=== PATIENT | male | born 1945 | race Caucasian/White ===

== ENCOUNTER 2020-09-03 11:48 | Emergency (ER) | payer MEDICARE, OTHER, SELFPAY ==
[2020-09-03 12:06] VITALS: BP 144/82; PULSE 82; RESP 16; TEMP 37; O2SAT 98; BMI 28.7
--- NOTE | 2020-09-03 12:13 | ED.DIZZY ---
HPI - Dizziness General Chief Complaint: Dizziness Stated Complaint: DIZZNESS Time Seen by Provider: 09/03/20 12:13 Source: patient Mode of arrival: ambulatory Limitations: no limitations History of Present Illness HPI Narrative: patient with room spinning and feeling like he is going to pass out. Patient feels spinning right to left so is falling to the left. This is the third day of symptoms. Patient has had these symptoms prior. The symptoms are worse in the morning with sitting up. No recent change in medication MD elicited complaint: dizziness, lightheadedness and near syncope Onset (ago): day(s) Timing: sudden onset Severity: moderate Description: sense of movement, room spinning , lightheadedness, off-balance and near-syncope Related Data Previous Rx's Medication Instructions Recorded meclizine 25 mg PO TID #20 tab 09/03/20 Allergies Allergy/AdvReac Type Severity Reaction Status Date / Time No Known Allergies Allergy Unverified 07/11/20 19:16 [No Known Allergies*] Review of Systems Constitutional: Constitutional: Reports no additional constitutional complaints Eyes: Eyes: Reports no additional eye complaints ENT: Denies dizziness Cardiovascular: Cardiovascular: Reports no additional cardiovascular complaints Respiratory: Respiratory: Reports as per HPI Gastrointestinal: Gastrointestinal: Reports no additional gastrointestinal complaints Musculoskeletal: Musculoskeletal: Reports no additional musculoskeletal complaints Integumentary/Breasts: Skin/Breast: Denies rash Neurologic: Reports system reviewed and no additional complaints, except as documented, Denies dizziness and Denies Sensory deficit (Neuro) Psychiatric: Psychiatric: Denies anxiety PMFSH Past Medical History Medical History A-fib A-fib Heart attack Social History Social History Alcohol intake: current Alcohol intake frequency: 0-2 drinks per day Smoking Status: Former smoker Smoked in Last 30 Days: No Use of substances other than those prescribed or required for medical reasons: No Advance Directives: No Advance Directives Information Provided: Yes Physical Exam Vital Signs: Vital Signs: Last Vital Signs Temp 98.6 F 09/03/20 12:06 Pulse 82 09/03/20 12:06 Resp 18 09/03/20 16:27 BP 144/82 H 09/03/20 12:06 Pulse Ox 98 09/03/20 12:06 Body Mass Index 28.7 Const: General: healthy appearing Nutritional Appearance: average body habitus Orientation/consciousness: oriented to person and patient oriented x3 Limitations: no limitations HENMT: Head: Yes normal to inspection Ears: external ears normal General nose exam: Normal external nose present Mouth: Normal oral and palatal mucosa present and oropharynx normal Throat: Yes posterior oropharynx normal Eyes: General: appearance normal, both eyes and all related structures Neck: Other: supple Neck: Yes normal visual inspection Chest: Chest palpation & inspection: normal inspection of the chest Resp: Auscultation: clear to auscultation bilaterally Cardio: Jugular venous distension: no JVD Rate: regular rate Rhythm: regular rhythm Heart sounds: S1 normal heart sound present and S2 normal heart sound present GI: Inspection: Yes normal to inspection Palpation (GI): Soft to palpation, nontender and No hepatosplenomegaly present Auscultation: normal bowel sounds : General: Yes no CVA tenderness Back/Spine/Pelvis: Back: no CVA tenderness Skin: General skin exam: no rashes or lesions noted Neuro: General: oriented to person and patient oriented x3 Cranial nerves: Yes CN's II-XII intact bilaterally Motor exam (neuro): 5/5 motor strength present throughout Sensory Exam: No Sensory deficit (Neuro) Extrem: General: Yes normal to inspection Psych: Appearance: grossly normal Course Course Course Narrative: Patient with positive [place] on looking to left Reevaluation(s) Reevaluation #1: feeling better, no evidence of stroke with dc with vertigo diagnosis Time: 17:08 MDM - Dizziness Differential Diagnosis Differential diagnosis: Likely benign paroxysmal positional vertigo, vertebral basilar insufficiency, cerebrovascular accident and transient cerebral ischemia Lab Data Result diagrams: 09/03/20 12:53 09/03/20 12:53 Labs: Lab Results 09/03/20 09/03/20 09/03/20 Range/Units 12:53 12:53 12:53 WBC 6.0 (4.8-10.8) X10*3/uL RBC 5.09 (4.60-5.80) X10*6/uL Hgb 14.7 (14.0-18.0) g/dl Hct 44.1 (42-52) % MCV 86.6 (80-98) fL MCH 28.9 (27.0-33.0) pg MCHC 33.3 (31.0-36.0) g/dl RDW 14.9 (11.0-16.0) % Plt Count 218 (160-400) X10*3/uL MPV 10.9 (9.4-12.4) fL Immature Gran % (Auto) 0.2 (0.0-0.4) % Neut % (Auto) 85.1 H (45-73) % Lymph % (Auto) 4.5 L (20-40) % [place] % (Auto) 7.4 (2-11) % Eos % (Auto) 2.5 (0-4) % Baso % (Auto) 0.3 (0-2) % Lymph # (Auto) 0.3 L (1.2-4.9) X10*3/uL [place] # (Auto) 0.4 (0.1-1.2) X10*3/uL Eos # (Auto) 0.2 (0.0-0.4) X10*3/uL Baso # (Auto) 0.0 (0.0-0.2) X10*3/uL Abs Immat Gran (auto) 0.01 (0.00-0.03) X10*3/uL Absolute Neuts (auto) 5.1 (2.0-8.3) X10*3/uL Absolute Nucleated RBC 0.000 (0.0-0.012) X10*3/uL Nucleated RBC % (auto) 0.0 (0.0-0.2) /100WBC Smear Tech's Comments VERIFIED Sodium 142 (135-145) mmol/L Potassium 3.5 (3.3-5.1) mmol/l Chloride 104 (96-108) mmol/L Carbon Dioxide 31 H (22-29) mmol/L Anion Gap 11 L (12-20) BUN 23 H (9-16) mg/dL Creatinine 0.93 (0.5-1.4) mg/dL Estim Creat Clear Calc 72.0 Estimated GFR > 60 Random Glucose 120 H (60-115) mg/dL Calcium 9.0 (8.4-10.2) mg/dL Troponin I High Sens 4.2 (<3.5-35.0) ng/L ECG Data Attestation: I personally reviewed and interpreted this ECG as follows: Interpretation: atrial fibrillation, rate of 60, no st or twave changes Discharge Plan Discharge Clinical Impression: Benign paroxysmal positional vertigo Patient Disposition: Home, Self-Care Instructions: Benign Paroxysmal Positional Vertigo (ED) Prescriptions: New meclizine 25 mg tablet 25 mg PO TID Qty: 20 RF: 0 Referrals: Jennifer Barlow MD [Primary Care Provider] - 2 days
--- NOTE | 2020-09-03 12:29 | MR_ITS ---
EXAMINATION: MR BRAIN WITHOUT CONTRAST CLINICAL INFORMATION: Dizziness and falling to the left. COMPARISON: None available. TECHNIQUE: Multiplanar, multisequence imaging of the brain was performed without intravenous contrast. FINDINGS: There is no acute infarction, hemorrhage, mass, or extra-axial fluid collection. Mild scattered foci of T2 hyperintensity are seen in the bilateral cerebral white matter compatible with chronic microangiopathy. There is mild degree of diffuse brain parenchymal volume loss. No hydrocephalus is seen. The major arterial flow voids are preserved at the skull base. The orbital contents appear normal. There is a small amount of fluid in the bilateral mastoids. MR/MR head/brain wo con IMPRESSION: No acute intracranial abnormality identified. No mass or infarction. Mild nonspecific T2 hyperintensity in the cerebral white matter presumably reflecting chronic microangiopathy.
--- NOTE | 2020-09-03 12:29 | ECG_ITS ---
Test Reason : DIZZINESS Blood Pressure : / mmHG Vent. Rate : 057 BPM Atrial Rate : 357 BPM P-R Int : 000 ms QRS Dur : 074 ms QT Int : 406 ms P-R-T Axes : 000 -16 033 degrees QTc Int : 395 ms Atrial fibrillation with slow ventricular response Nonspecific ST and T wave abnormality Abnormal ECG When compared with ECG of 20-FEB-2017 12:26, Atrial fibrillation has replaced Sinus rhythm Heart rate has decreased 2 sec pause noted Referred By: John Curran Electronically Signed By:LAWRENCE SAPP MD
--- NOTE | 2020-09-03 12:51 | PC.NURSE ---
mri screening form completed and faxed to mri
[2020-09-03] MEDS: Meclizine HCl 25 MG TABLET 50 MG PO (12:53)
[2020-09-03 12:59] LABS: Basophils Percent Auto 0.3 % (0-2); Eosinophils Absolute Auto 0.2 X10*3/uL (0.0-0.4); Eosinophils Percent Auto 2.5 % (0-4); Hematocrit 44.1 % (42-52); Hemoglobin 14.7 g/dl (14.0-18.0); Imm Gran Abs Auto 0.01 X10*3/uL (0.00-0.03); Imm Gran Pct Auto 0.2 % (0.0-0.4); Lymphocytes Absolute Auto 0.3 X10*3/uL (1.2-4.9); Lymphocytes Percent Auto 4.5 % (20-40); Mean Corpuscular HGB Conc 33.3 g/dl (31.0-36.0); Mean Corpuscular Hemoglobin 28.9 pg (27.0-33.0); Mean Corpuscular Volume 86.6 fL (80-98); Mean Platelet Volume 10.9 fL (9.4-12.4); Monocytes Absolute Auto 0.4 X10*3/uL (0.1-1.2); Monocytes Percent Auto 7.4 % (2-11); Neutrophils Absolute Auto 5.1 X10*3/uL (2.0-8.3); Neutrophils Percent Auto 85.1 % (45-73); Platelet Count 218 X10*3/uL (160-400); Red Blood Count 5.09 X10*6/uL (4.60-5.80); Red Cell Distribution Width 14.9 % (11.0-16.0); SCAN SMEAR FLAG 1
[2020-09-03 13:25] LABS: Anion Gap 11 (12-20); Blood Urea Nitrogen 23 mg/dL (9-16); Carbon Dioxide 31 mmol/L (22-29); Chloride 104 mmol/L (96-108); Estimated Glomerular Filt Rate > 60; Glucose Random 120 mg/dL (60-115); Potassium 3.5 mmol/l (3.3-5.1); Sodium 142 mmol/L (135-145)
[2020-09-03 13:31] LABS: MANUAL DIFF FLAG SCAN
[2020-09-03 13:32] LABS: SLIDE REVIEW VERIFIED
[2020-09-03 13:33] LABS: Troponin-I High Sensitivity 4.2 ng/L (<3.5-35.0)
[2020-09-03 16:27] VITALS: RESP 18
--- NOTE | 2020-09-03 16:29 | PC.NURSE ---
pt expresses agitation about wait for bathroom and timing of mri results. patient reorientated to use of call john. patient verbalized understanding. patient refused to change back into nic. This is bullshit and i have to pee I havent seen anyone in hours. patient educated on 2 hr rounding by staff.
== END 2020-09-03 17:31 | disposition home or self-care (01) ==
PROVIDERS: Emergency Provider Emergency Medicine; PCP Family Medicine
DX: H81.13 Benign paroxysmal vertigo, bilateral (principal); Z79.899 Other long term (current) drug therapy
CPT/HCPCS: 36415; 70551; 80048; 84484; 85025; 93005; 99284; 99285

== ENCOUNTER 2021-11-12 21:24 | Observation (INO) | payer MEDICARE, OTHER, SELFPAY ==
--- NOTE | ~2021-11-12 | XR_ITS ---
EXAMINATION: PORTABLE CHEST 1 VIEW chest pain . COMPARISON: 02/20/2017. TECHNIQUE: Portable frontal view of the chest was obtained. FINDINGS: The lungs are well expanded. No focal infiltrate, effusion, edema, or pneumothorax. Cardiac and mediastinal silhouettes are within normal limits for technique. No acute bony abnormality seen. XR/XR chest 1V IMPRESSION: No evidence of acute disease.
[2021-11-12 21:34] VITALS: BP 114/65; PULSE 55; RESP 18; TEMP 36.7; O2SAT 98; BMI 25.1
--- NOTE | 2021-11-12 21:39 | ECG_ITS ---
Test Reason : CHEST PAIN Blood Pressure : / mmHG Vent. Rate : 060 BPM Atrial Rate : 000 BPM P-R Int : 000 ms QRS Dur : 070 ms QT Int : 406 ms P-R-T Axes : 000 -24 058 degrees QTc Int : 406 ms Atrial fibrillation with premature ventricular or aberrantly conducted complexes Low voltage QRS Abnormal ECG When compared with ECG of 03-SEP-2020 12:09, No significant change was found Referred By: Generic ED Physician Electronically Signed By:Audie Gutiérrez
[2021-11-12 22:04] LABS: MANUAL DIFF FLAG NO
--- NOTE | 2021-11-12 22:05 | ED.CHESTPAIN ---
HPI - Chest Pain General Chief Complaint: Chest Pain Stated Complaint: heart attack ? Time Seen by Provider: 11/12/21 22:05 Source: patient Mode of arrival: ambulatory Limitations: no limitations History of Present Illness HPI narrative: Patientwith history of coronary artery disease status post stent 5 years ago on Eliquis for atrial fibrillation was doing good for last 5 years occasionally gets chest pain today where an hour prior to arrival while resting notice similar chest pain in the left side , heavy in character radiating to his jaw lasted for about 20 minutes he took 2 nitros sublingually and improved no chest pain at this time no shortness of breath no diaphoresis no cough no palpitation no syncope episode Related Data Previous Rx's Medication Instructions Recorded meclizine 25 mg tablet 25 mg PO TID #20 tab 09/03/20 Allergies Allergy/AdvReac Type Severity Reaction Status Date / Time No Known Allergies Allergy Verified 11/12/21 21:34 [No Known Allergies*] Review of Systems Review of Systems: Yes all other systems are reviewed and are negative [facility] Past Medical History Medical History A-fib A-fib Heart attack Social History Social History Alcohol intake: current Alcohol intake frequency: 0-2 drinks per day Advance Directives: No Advance Directives Information Provided: Yes Physical Exam Vital Signs: Vital Signs: Last Vital Signs Temp 98.3 F 11/12/21 22:14 Pulse 57 11/13/21 00:48 Resp 16 11/13/21 00:48 BP 115/94 H 11/13/21 00:48 Pulse Ox 95 11/13/21 00:48 BMI result Body Mass Index 25.1 Appearance: Alert. Oriented X3. No acute distress. Eyes: No pallor icterus ENT: Pharynx normal. Oral Mucosa moist Neck: Normal inspection. Neck supple. CVS: Irregular irregular bradycardia no murmur or gallop Pulses normal. Respiratory: No respiratory distress. Equal air entry bilateral, no wheezing/rales/rhonchi Abdomen: Soft and nontender. Bowel sounds are present, no mass palpable, no CVA tenderness Skin: Skin warm and dry. Normal skin color. Normal skin turgor. Extremities: No lower extremity edema. No calf tenderness Neuro: Oriented X 3. No motor deficit. MDM - Chest Pain MDM Narrative Medical decision making narrative: Patient with left-sided chest pain similar to that when he had heart attack in 5 years ago EKG without any which changes initial troponin negative but patient is at high risk of coronary syndrome will admit patient for ACS/unstable angina ,no chest pain after arrival to the ER Lab Data Attestation: I reviewed the patient's lab results. Result diagrams: 11/12/21 21:57 11/12/21 21:57 Labs: Lab Results 11/12/21 11/12/21 11/12/21 Range/Units 21:57 21:57 21:57 WBC 5.6 (4.8-10.8) X10*3/uL RBC 4.48 L (4.60-5.80) X10*6/uL Hgb 13.4 L (14.0-18.0) g/dl Hct 40.2 L (42.0-52.0) % MCV 89.7 (80.0-98.0) fL MCH 29.9 (27.0-33.0) pg MCHC 33.3 (31.0-36.0) g/dl RDW 14.5 (11.0-16.0) % Plt Count 226 (160-400) X10*3/uL MPV 10.8 (9.4-12.4) fL Immature Gran % (Auto) 0.4 (0.0-0.4) % Neut % (Auto) 78.9 H (45-73) % Lymph % (Auto) 5.9 L (20-40) % [place] % (Auto) 10.1 (2-11) % Eos % (Auto) 4.3 H (0-4) % Baso % (Auto) 0.4 (0-2) % Lymph # (Auto) 0.3 L (1.2-4.9) X10*3/uL [place] # (Auto) 0.6 (0.1-1.2) X10*3/uL Eos # (Auto) 0.2 (0.0-0.4) X10*3/uL Baso # (Auto) 0.0 (0.0-0.2) X10*3/uL Abs Immat Gran (auto) 0.02 (0.00-0.03) X10*3/uL Absolute Neuts (auto) 4.4 (2.0-8.3) x10*3/uL Absolute Nucleated RBC 0.000 (0.0-0.012) X10*3/uL Nucleated RBC % (auto) 0.0 (0.0-0.2) /100WBC PT (9.9-13.0) SEC INR (0.9-1.1) APTT (24.1-38.0) SEC Sodium 142 (135-145) mmol/L Potassium 4.6 (3.3-5.1) mmol/L Chloride 107 (96-108) mmol/L Carbon Dioxide 29 (22-29) mmol/L Anion Gap 11 L (12-20) BUN 21 H (9-16) mg/dL Creatinine 0.98 (0.5-1.4) mg/dL Estim Creat Clear Calc 62.1 Estimated GFR > 60 Random Glucose 116 H (60-115) mg/dL Calcium 9.5 (8.4-10.2) mg/dL Troponin I High Sens 6.0 (<3.5-35.0) ng/L COVID-19 (XAVI) (Negative) COVID-19 Clin Com 11/12/21 11/13/21 Range/Units 22:23 00:11 WBC (4.8-10.8) X10*3/uL RBC (4.60-5.80) X10*6/uL Hgb (14.0-18.0) g/dl Hct (42.0-52.0) % MCV (80.0-98.0) fL MCH (27.0-33.0) pg MCHC (31.0-36.0) g/dl RDW (11.0-16.0) % Plt Count (160-400) X10*3/uL MPV (9.4-12.4) fL Immature Gran % (Auto) (0.0-0.4) % Neut % (Auto) (45-73) % Lymph % (Auto) (20-40) % [place] % (Auto) (2-11) % Eos % (Auto) (0-4) % Baso % (Auto) (0-2) % Lymph # (Auto) (1.2-4.9) X10*3/uL [place] # (Auto) (0.1-1.2) X10*3/uL Eos # (Auto) (0.0-0.4) X10*3/uL Baso # (Auto) (0.0-0.2) X10*3/uL Abs Immat Gran (auto) (0.00-0.03) X10*3/uL Absolute Neuts (auto) (2.0-8.3) x10*3/uL Absolute Nucleated RBC (0.0-0.012) X10*3/uL Nucleated RBC % (auto) (0.0-0.2) /100WBC PT 20.0 H (9.9-13.0) SEC INR 1.7 H (0.9-1.1) APTT 39.0 H (24.1-38.0) SEC Sodium (135-145) mmol/L Potassium (3.3-5.1) mmol/L Chloride (96-108) mmol/L Carbon Dioxide (22-29) mmol/L Anion Gap (12-20) BUN (9-16) mg/dL Creatinine (0.5-1.4) mg/dL Estim Creat Clear Calc Estimated GFR Random Glucose (60-115) mg/dL Calcium (8.4-10.2) mg/dL Troponin I High Sens (<3.5-35.0) ng/L COVID-19 (XAVI) Negative (Negative) COVID-19 Clin Com See Note ECG Data ECG #1: Attestation: I personally reviewed and interpreted this ECG as follows: Interpretation: Atrial fibrillation heart rate 60 beats per minute no acute ST T wave changes Discharge Plan Discharge Clinical Impression: Chest pain Qualifiers: Chest pain type: unspecified Qualified Code(s): R07.9 - Chest pain, unspecified Afib Qualifiers: Atrial fibrillation type: persistent (not longstanding) Qualified Code(s): I48.19 - Other persistent atrial fibrillation Patient Disposition: Admitted As Inpatient
[2021-11-12 22:08] LABS: Basophils Percent Auto 0.4 % (0-2); Eosinophils Absolute Auto 0.2 X10*3/uL (0.0-0.4); Eosinophils Percent Auto 4.3 % (0-4); Hematocrit 40.2 % (42.0-52.0); Hemoglobin 13.4 g/dl (14.0-18.0); Imm Gran Abs Auto 0.02 X10*3/uL (0.00-0.03); Imm Gran Pct Auto 0.4 % (0.0-0.4); Lymphocytes Absolute Auto 0.3 X10*3/uL (1.2-4.9); Lymphocytes Percent Auto 5.9 % (20-40); Mean Corpuscular HGB Conc 33.3 g/dl (31.0-36.0); Mean Corpuscular Hemoglobin 29.9 pg (27.0-33.0); Mean Corpuscular Volume 89.7 fL (80.0-98.0); Mean Platelet Volume 10.8 fL (9.4-12.4); Monocytes Absolute Auto 0.6 X10*3/uL (0.1-1.2); Monocytes Percent Auto 10.1 % (2-11); Neutrophils Absolute Auto 4.4 x10*3/uL (2.0-8.3); Neutrophils Percent Auto 78.9 % (45-73); Platelet Count 226 X10*3/uL (160-400); Red Blood Count 4.48 X10*6/uL (4.60-5.80); Red Cell Distribution Width 14.5 % (11.0-16.0); White Blood Count 5.6 X10*3/uL (4.8-10.8)
[2021-11-12 22:14] VITALS: BP 113/58; PULSE 62; RESP 16; TEMP 36.8; O2SAT 97
[2021-11-12 22:22] LABS: Anion Gap 11 (12-20); Blood Urea Nitrogen 21 mg/dL (9-16); Calcium 9.5 mg/dL (8.4-10.2); Carbon Dioxide 29 mmol/L (22-29); Chloride 107 mmol/L (96-108); Creatinine Clr Calc Pharmacy 62.1; Estimated Glomerular Filt Rate > 60; Glucose Random 116 mg/dL (60-115); Potassium 4.6 mmol/L (3.3-5.1); Sodium 142 mmol/L (135-145)
[2021-11-12 22:35] LABS: INTERNATIONAL NORM RATIO 1.7 (0.9-1.1)
[2021-11-12 23:48] VITALS: BP 117/70; PULSE 63; RESP 15; O2SAT 97
[2021-11-12] MEDS: Nitroglycerin 2 % Oint 1 GM Packet 0.5 INCH TRANSDERMA (23:49)
[2021-11-13 00:36] LABS: COVID-19 Test Negative (Negative); IDNOW Serial# 9DD0AD1C
[2021-11-13 00:48] VITALS: BP 115/94; PULSE 57; RESP 16; O2SAT 95
--- NOTE | 2021-11-13 01:07 | P.HPHOSP_ITS ---
History of Present Illness Date of Service: 11/13/21 Chief Complaint: chest pain 76-year-old male with a past medical history of hypertension, hyperlipidemia, CAD status post stent, AFib on Eliquis presented to the hospital with a chief complaint of chest pain. Patient reported that prior to come to the hospital he had episode of chest pain- tight in nature, located in the center of the chest, radiating to the [place], associated lightheadedness dizziness and nausea/indigestion; lasted for about 15-20 minute; no improvement with his home medications; subsequently his daughter brought him to the hospital for further evaluation. Denies any chest pain or lightheadedness at the time of my interview. Denies any fever chills cough. Denies any recent travel or sick contacts. Review of all other systems is negative except mentioned above ER course: Per ER team patient was chest pain-free; EKG showed AFib, nonischemic; patient was placed a nitro patch; initial troponin was 6.0. Given typical nature of the chest pain decided to admit to the hospital for further evaluation by Cardiology in the morning. REPLACED BY [facility] Medical History A-fib A-fib Heart attack Pertinent family history: Reviewed Social History Alcohol intake: current Alcohol intake frequency: 0-2 drinks per day Advance Directives: No Advance Directives Information Provided: Yes Meds Allergies Allergy/AdvReac Type Severity Reaction Status Date / Time No Known Allergies Allergy Verified 11/12/21 21:34 [No Known Allergies*] Physical Exam Verdana 4l Vital Signs and Narrative: Verdana 4d Verdana 4d Vital Signs: Verdana 4d Verdana 4Bd Last Vital Signs Verdana 4d Manager Of Financial Planning New 4d Manager Of Financial Planning New 4d Temp 98.3 F 11/12/21 22:14 Manager Of Financial Planning New 4d Pulse 57 11/13/21 00:48 Manager Of Financial Planning NewNew 4d Resp 16 11/13/21 00:48 BP 115/94 H 11/13/21 00:48 Pulse Ox 95 11/13/21 00:48 BMI result Body Mass Index 25.1 Gen: Appears be in no acute distress HEENT: NCAT, Moist mucosa. Pulmonary: Vesicular breath sounds, fair air entry CVS: Normal S1-S2 Abdomen: BS+, Soft, Nontender Extremities: Warm well perfused Neuro: Alert and awake. Results Labs CBC and Chem 7: 11/12/21 21:57 11/12/21 21:57 Labs: Laboratory Results - last 24 hr 11/12/21 11/12/21 11/12/21 21:57 21:57 21:57 MCV 89.7 MCH 29.9 MCHC 33.3 RDW 14.5 Plt Count 226 MPV 10.8 Immature Gran % (Auto) 0.4 Neut % (Auto) 78.9 H Lymph % (Auto) 5.9 L [place] % (Auto) 10.1 Eos % (Auto) 4.3 H Baso % (Auto) 0.4 Lymph # (Auto) 0.3 L [place] # (Auto) 0.6 Eos # (Auto) 0.2 Baso # (Auto) 0.0 Abs Immat Gran (auto) 0.02 Absolute Neuts (auto) 4.4 Absolute Nucleated RBC 0.000 Nucleated RBC % (auto) 0.0 PT INR APTT Anion Gap 11 L Estim Creat Clear Calc 62.1 Estimated GFR > 60 Random Glucose 116 H Calcium 9.5 Troponin I High Sens 6.0 COVID-19 (XAVI) COVID-19 Clin Com 11/12/21 11/13/21 22:23 00:11 MCV MCH MCHC RDW Plt Count MPV Immature Gran % (Auto) Neut % (Auto) Lymph % (Auto) [place] % (Auto) Eos % (Auto) Baso % (Auto) Lymph # (Auto) [place] # (Auto) Eos # (Auto) Baso # (Auto) Abs Immat Gran (auto) Absolute Neuts (auto) Absolute Nucleated RBC Nucleated RBC % (auto) PT 20.0 H INR 1.7 H APTT 39.0 H Anion Gap Estim Creat Clear Calc Estimated GFR Random Glucose Calcium Troponin I High Sens COVID-19 (XAVI) Negative COVID-19 Clin Com See Note Imaging Radiologist's Impressions: Impressions Chest X-Ray 11/12/21 22:03 IMPRESSION: No evidence of acute disease. Assessment and Plan (1) Chest pain: Status: Acute (2) CAD (coronary artery disease): Status: Acute (3) Afib: Status: Acute 76-year-old male with a past medical history of hypertension, hyperlipidemia, CAD status post stent, AFib on Eliquis presented to the hospital with a chief complaint of chest pain. Chest pain: typical in nature Currently resolved Patient has nitro patch placed in the ER Telemetry Initial troponin negative, cycle cardiac enzymes EKG nonischemic Cardiology consult history of AFib: Patient heart rate is in 50s- normal per patient. Continue home Eliquis. DVT prophylaxis: Patient on Eliquis Code status: Full code Quality Stroke Does the patient have a stroke diagnosis?: No VTE Prior VTE?: No VTE Risk Level:: Medical - low VTE Device Contraindication: Treatment Not Indicated VTE Drug Contraindication: N/A - Med Ordered
[2021-11-13 01:46] LABS: Troponin-I High Sensitivity 4.5 ng/L (<3.5-35.0)
[2021-11-13 02:05] VITALS: BP 110/61; PULSE 67; RESP 16; TEMP 36.4; O2SAT 96
[2021-11-13 06:33] LABS: Hemoglobin 12.4 g/dl (14.0-18.0); Mean Corpuscular HGB Conc 32.6 g/dl (31.0-36.0); Mean Corpuscular Hemoglobin 29.6 pg (27.0-33.0); Mean Corpuscular Volume 90.7 fL (80.0-98.0); Mean Platelet Volume 11.1 fL (9.4-12.4); Platelet Count 205 X10*3/uL (160-400); Red Blood Count 4.19 X10*6/uL (4.60-5.80); Red Cell Distribution Width 14.4 % (11.0-16.0)
[2021-11-13 06:46] VITALS: BP 84/48; PULSE 59; RESP 12; O2SAT 95
--- NOTE | 2021-11-13 06:50 | PC.NURSE ---
Dr Larson aware of pt's VS
[2021-11-13] MEDS: 0.9 % Sodium Chloride 500 ML IV (06:52)
[2021-11-13 07:01] LABS: Anion Gap 12 (12-20); Blood Urea Nitrogen 20 mg/dL (9-16); Calcium 8.8 mg/dL (8.4-10.2); Carbon Dioxide 26 mmol/L (22-29); Chloride 109 mmol/L (96-108); Creatinine Clr Calc Pharmacy 64.7; Estimated Glomerular Filt Rate > 60; Glucose Random 79 mg/dL (60-115); Sodium 143 mmol/L (135-145)
[2021-11-13 07:42] VITALS: BP 104/65; PULSE 59; RESP 15; TEMP 36.6; O2SAT 95
--- NOTE | 2021-11-13 08:37 | MHC.CM.PN ---
Met with patient in regards to discharge planning. Patient lives with his , ambulates independently and had no services prior to coming to the hospital. No services anticiapted to be needed because patient is not homebound. PCP verified. Copy of HCP verified to be on file. Obs notice explained and signed. Patient received 2 Moderna vaccines and a Pfizer booster. Patient's will transport patient home when medically stable. Continue to monitor for d/c needs.
--- NOTE | 2021-11-13 09:23 | PHA.MEDREC ---
Pharmacy Consult ? Medication Reconciliation Pharmacy has completed the medication reconciliation. Confirmed medications with pateint's Carol. Adelaide Robbins, [employer]
--- NOTE | 2021-11-13 09:51 | PM.CNCAR ---
History of Present Illness History of Present Illness Date of Service: 11/13/21 Requesting physician: Rio Long Chief complaint: Chest pain, unstable angina Narrative: Pleasant 76-year-old gentleman who is presenting for chest pain. He has no history of coronary artery disease underwent cardiac catheterization in 2018. His primary master tax advisor is Dr. Delta Jaramillo at [facility]. Cardiac catheterization showed 50% proximal LAD and mid LAD stenosis. He also had 65% proximal left circumflex stenosis which was studied with pressure wire and IFR was 0.92 which was nonsignificant. He also had mid RCA 45% stenosis. He was medically managed after that. He also has background of atrial fibrillation and has been on Eliquis. He is presenting with chest pain and jaw pain which happened at rest and lasted for approximately 15 minutes. He said this was similar to his anginal pain before. He also reports a PCI in the past. With these symptoms he presented to [facility]. He has stable hemodynamics. He has been pain-free since then. His high sensitivity troponin levels are 6 and 4.5. [facility] Past Medical History Medical History A-fib A-fib Heart attack Social History Social History Alcohol intake: current Alcohol intake frequency: 0-2 drinks per day Advance Directives: No Advance Directives Information Provided: Yes service: No Current occupational status: retired Meds Allergies Allergy/AdvReac Type Severity Reaction Status Date / Time No Known Allergies Allergy Verified 11/12/21 21:34 [No Known Allergies*] Active Medications: Current Medications Acetaminophen (Acetaminophen 325 Mg Tablet) 650 mg PO Q6H PRN PRN Reason: Pain, Mild (Pain Scale 1-3) Apixaban (Apixaban 5 Mg Tablet) 5 mg PO BID JESSICA Melatonin (Melatonin 3 Mg Tablet) 6 mg PO BEDTIME PRN PRN Reason: Insomnia Nitroglycerin (Nitroglycerin 0.4 Mg Tab.Subl) 0.4 mg SUBLINGUAL Q5MX3 PRN PRN Reason: Chest Pain Pharmacy Consult (Consult Rx Perform Med Rec) 1 each MISCELLANE ONCE PRN PRN Reason: Consult order Senna (Sennosides 8.6 Mg Tablet) 17.2 mg PO BEDTIME PRN PRN Reason: Constipation Sodium Chloride (0.9 % Sodium Chloride Flush 3 Ml Syringe) 3 ml IVFLUSH QSHIFT JESSICA Last Admin: 11/13/21 07:54 Dose: Not Given Documented by: Home Medications Medication Instructions Recorded Confirmed Last Taken Type apixaban 5 mg tablet (Eliquis) 1 tab PO BID 11/13/21 11/13/21 11/12/21 History atorvastatin 80 mg tablet 1 tab PO BEDTIME 11/13/21 11/13/21 11/12/21 History cyanocobalamin (vitamin B-12) 1,000 mcg PO DAILY 11/13/21 11/13/21 11/12/21 History 1,000 mcg tablet doxazosin 8 mg tablet 1 tab PO DAILY 11/13/21 11/13/21 11/12/21 History famotidine 20 mg tablet 1 tab PO BID 11/13/21 11/13/21 11/12/21 History nitroglycerin 0.4 mg sublingual 0.4 mg SUBLINGUAL Q2M PRN 11/13/21 11/13/21 11/12/21 History tablet pyridoxine (vitamin B6) 100 mg 100 mg PO DAILY 11/13/21 11/13/21 11/12/21 History tablet thiamine HCl (vitamin B1) 100 mg 50 mg PO DAILY 11/13/21 11/13/21 11/12/21 History tablet Physical Exam Vital Signs: Vital Signs: Last Vital Signs Temp 97.9 F 11/13/21 07:42 Pulse 59 11/13/21 07:42 Resp 15 11/13/21 07:42 BP 104/65 11/13/21 07:42 Pulse Ox 95 11/13/21 07:42 BMI result Body Mass Index 25.1 GENERAL APPEARANCE: in no acute distress, pleasant. NECK: no carotid bruit, no jugular venous distention. SKIN: no suspicious lesions, warm and dry. HEART: no murmurs, regular rate and rhythm. LUNGS: clear to auscultation bilaterally. ABDOMEN: soft, nontender. EXTREMITIES: no edema. PERIPHERAL PULSES: equal. NEUROLOGIC: No gross deficits, AAO X 3 Objective Labs and Meds Result diagrams: 11/13/21 06:12 11/13/21 06:12 Lab results: Laboratory Results - last 24 hr 11/12/21 11/12/21 11/12/21 21:57 21:57 21:57 WBC 5.6 RBC 4.48 L Hgb 13.4 L Hct 40.2 L MCV 89.7 MCH 29.9 MCHC 33.3 RDW 14.5 Plt Count 226 MPV 10.8 Immature Gran % (Auto) 0.4 Neut % (Auto) 78.9 H Lymph % (Auto) 5.9 L [place] % (Auto) 10.1 Eos % (Auto) 4.3 H Baso % (Auto) 0.4 Lymph # (Auto) 0.3 L [place] # (Auto) 0.6 Eos # (Auto) 0.2 Baso # (Auto) 0.0 Abs Immat Gran (auto) 0.02 Absolute Neuts (auto) 4.4 Absolute Nucleated RBC 0.000 Nucleated RBC % (auto) 0.0 PT INR APTT Sodium 142 Potassium 4.6 Chloride 107 Carbon Dioxide 29 Anion Gap 11 L BUN 21 H Creatinine 0.98 Estim Creat Clear Calc 62.1 Estimated GFR > 60 Random Glucose 116 H Calcium 9.5 Troponin I High Sens 6.0 COVID-19 (XAVI) [facility] 11/12/21 11/13/21 11/13/21 22:23 00:11 01:23 WBC RBC Hgb Hct MCV MCH MCHC RDW Plt Count MPV Immature Gran % (Auto) Neut % (Auto) Lymph % (Auto) [place] % (Auto) Eos % (Auto) Baso % (Auto) Lymph # (Auto) [place] # (Auto) Eos # (Auto) Baso # (Auto) Abs Immat Gran (auto) Absolute Neuts (auto) Absolute Nucleated RBC Nucleated RBC % (auto) PT 20.0 H INR 1.7 H APTT 39.0 H Sodium Potassium Chloride Carbon Dioxide Anion Gap BUN Creatinine Estim Creat Clear Calc Estimated GFR Random Glucose Calcium Troponin I High Sens 4.5 COVID-19 (XAVI) Negative COVID-19 [employer] See Note 11/13/21 11/13/21 06:12 06:12 WBC 5.0 RBC 4.19 L Hgb 12.4 L Hct 38.0 L MCV 90.7 MCH 29.6 MCHC 32.6 RDW 14.4 Plt Count 205 MPV 11.1 Immature Gran % (Auto) Neut % (Auto) Lymph % (Auto) [place] % (Auto) Eos % (Auto) Baso % (Auto) Lymph # (Auto) [place] # (Auto) Eos # (Auto) Baso # (Auto) Abs Immat Gran (auto) Absolute Neuts (auto) Absolute Nucleated RBC 0.000 Nucleated RBC % (auto) 0.0 PT INR APTT Sodium 143 Potassium 4.0 Chloride 109 H Carbon Dioxide 26 Anion Gap 12 BUN 20 H Creatinine 0.94 Estim Creat Clear Calc 64.7 Estimated GFR > 60 Random Glucose 79 Calcium 8.8 D Troponin I High Sens COVID-19 (XAVI) COVID-19 Clin Com Imaging Radiologist's impression: Impressions Chest X-Ray 11/12/21 22:03 IMPRESSION: No evidence of acute disease. Assessment and Plan (1) Afib: Qualifiers: Atrial fibrillation type: persistent (not longstanding) Qualified Code(s): I48.19 - Other persistent atrial fibrillation Status: Acute (2) Chest pain: Qualifiers: Chest pain type: unspecified Qualified Code(s): R07.9 - Chest pain, unspecified Status: Acute Pleasant 76-year-old gentleman who is presenting for chest pain. He has atrial fibrillation and has been on Eliquis. He also has history of coronary disease with cardiac catheterization in 2018 when he had 65% left circumflex stenosis which was IFR negative. Currently his EKG is not showing any dynamic changes. His biomarkers also normal but he had chest pain at rest a 15 minutes duration radiating to his jaw which is his anginal pain which has not happened for long time. I think we should treat him as unstable angina. Hold the Eliquis and start him on heparin drip. I have discussed the case with [facility] and will transfer to [facility] for potential cardiac catheterization tomorrow. Please keep him NPO after midnight. Continue aspirin. Hold the Eliquis. Thank you for allowing me to participate in the care of your patient. Please feel free to contact me if you have any questions. Procedures Date of Service Date of Service: 11/13/21
[2021-11-13] MEDS: Aspirin 81 MG TAB.CHEW 324 MG PO (10:19)
--- NOTE | 2021-11-13 10:27 | PC.NURSE ---
contact made to Hospitalist Ethan: confirmed per [facility] cardiology, pt is to be transferred to [facility] pending Cath. Plan is to administer ASA at this time, hold elquis, then start HEPARIN GTTs in evening.
[2021-11-13 10:48] VITALS: BP 123/56; PULSE 63; RESP 17; TEMP 36.4; O2SAT 98
--- NOTE | 2021-11-13 11:07 | PC.NURSE ---
ACCEPTING MD: Mirta pt to be transferred to [facility].
--- NOTE | 2021-11-13 11:09 | PC.NURSE ---
Called to give report Evi ZAMORA unable to take it, will call back in 10min
--- NOTE | 2021-11-13 11:22 | PM.DS ---
DS: Providers Provider Date of Service: 11/13/21 Date of admission: 11/13/21 01:05 Primary care physician: Jennifer Barlow MD Consults: 11/13/21 01:05 Consult to Cardiology Routine Consulting Provider: Audie Gutiérrez Reason for consultation: chest pain DS: Diagnosis Discharge Diagnosis (1) Chest pain: Status: Acute (2) CAD (coronary artery disease): Status: Acute (3) Afib: Status: Acute DS: Summary Hospital Course Hospital Course: patient was admitted for unstable angina. His Eliquis has been held, he was given aspirin, he was seen by Cardiology who recommended transfer to [facility] for further evaluation and possible catheterization. Patient's chest pain has resolved. His troponins remain negative. Time Spent with Patient Time attestation: Total time spent providing and/or coordinating discharge services: Discharge coordination time: Greater than 30 minutes Quality: Stroke Does the patient have a stroke diagnosis?: No Physical Exam Vital Signs: Vital Signs: Last Vital Signs Temp 97.6 F 11/13/21 10:48 Pulse 63 11/13/21 10:48 Resp 17 11/13/21 10:48 BP 123/56 L 11/13/21 10:48 Pulse Ox 98 11/13/21 10:48 BMI result Body Mass Index 25.1 General: AO X 3, no acute distress Resp: CTA bilateral, no accessory muscles used CVS: S1,S2,RRR GI: soft, non tender, non distended Neuro: motor grossly intact, alert Psych: appropriate affect, appropriate insight DS: Data Data Completed and Pending Labs on day of discharge: Laboratory Results - last 24 hr 11/12/21 11/12/21 11/12/21 21:57 21:57 21:57 WBC 5.6 RBC 4.48 L Hgb 13.4 L Hct 40.2 L MCV 89.7 MCH 29.9 MCHC 33.3 RDW 14.5 Plt Count 226 MPV 10.8 Immature Gran % (Auto) 0.4 Neut % (Auto) 78.9 H Lymph % (Auto) 5.9 L [place] % (Auto) 10.1 Eos % (Auto) 4.3 H Baso % (Auto) 0.4 Lymph # (Auto) 0.3 L [place] # (Auto) 0.6 Eos # (Auto) 0.2 Baso # (Auto) 0.0 Abs Immat Gran (auto) 0.02 Absolute Neuts (auto) 4.4 Absolute Nucleated RBC 0.000 Nucleated RBC % (auto) 0.0 PT INR APTT Sodium 142 Potassium 4.6 Chloride 107 Carbon Dioxide 29 Anion Gap 11 L BUN 21 H Creatinine 0.98 Estim Creat Clear Calc 62.1 Estimated GFR > 60 Random Glucose 116 H Calcium 9.5 Troponin I High Sens 6.0 COVID-19 (XAVI) COVID-19 Clin Com 11/12/21 11/13/21 11/13/21 22:23 00:11 01:23 WBC RBC Hgb Hct MCV MCH MCHC RDW Plt Count MPV Immature Gran % (Auto) Neut % (Auto) Lymph % (Auto) [place] % (Auto) Eos % (Auto) Baso % (Auto) Lymph # (Auto) [place] # (Auto) Eos # (Auto) Baso # (Auto) Abs Immat Gran (auto) Absolute Neuts (auto) Absolute Nucleated RBC Nucleated RBC % (auto) PT 20.0 H INR 1.7 H APTT 39.0 H Sodium Potassium Chloride Carbon Dioxide Anion Gap BUN Creatinine Estim Creat Clear Calc Estimated GFR Random Glucose Calcium Troponin I High Sens 4.5 COVID-19 (XAVI) Negative COVID-19 Clin Com See Note 11/13/21 11/13/21 06:12 06:12 WBC 5.0 RBC 4.19 L Hgb 12.4 L Hct 38.0 L MCV 90.7 MCH 29.6 MCHC 32.6 RDW 14.4 Plt Count 205 MPV 11.1 Immature Gran % (Auto) Neut % (Auto) Lymph % (Auto) [place] % (Auto) Eos % (Auto) Baso % (Auto) Lymph # (Auto) [place] # (Auto) Eos # (Auto) Baso # (Auto) Abs Immat Gran (auto) Absolute Neuts (auto) Absolute Nucleated RBC 0.000 Nucleated RBC % (auto) 0.0 PT INR APTT Sodium 143 Potassium 4.0 Chloride 109 H Carbon Dioxide 26 Anion Gap 12 BUN 20 H Creatinine 0.94 Estim Creat Clear Calc 64.7 Estimated GFR > 60 Random Glucose 79 Calcium 8.8 D Troponin I High Sens COVID-19 (XAVI) COVID-19 Clin Com Discharge Plan Discharge Patient Disposition: [facility] Discharge Diagnosis: unstable angina Referrals: Jennifer Barlow MD [Primary Care Provider] - 1 Week Discharge Medications: Continued atorvastatin 80 mg tablet 1 tab PO BEDTIME RF: 0 cyanocobalamin (vitamin B-12) 1,000 mcg Tablet 1,000 mcg PO DAILY RF: 0 thiamine HCl (vitamin B1) 100 mg Tablet 50 mg PO DAILY RF: 0 doxazosin 8 mg tablet 1 tab PO DAILY RF: 0 famotidine 20 mg tablet 1 tab PO BID RF: 0 nitroglycerin 0.4 mg tablet, sublingual 0.4 mg sublingual Q2M PRN (Reason: Chest Pain) RF: 0 pyridoxine (vitamin B6) 100 mg Tablet 100 mg PO DAILY RF: 0 Held Eliquis 5 mg tablet 1 tab PO BID RF: 0 Hold Instructions: Resume on 11/17/21. Discharge Orders: Discharge Order (Routine); Ordered 11/13/21 Ordered By: Rio Long Diet: advance to usual diet Activity on Discharge: As tolerated Stand Alone Forms: Patient Portal Discharge page Care Plan Goals: ischemic workup Health Concerns: unstable angina Plan of Treatment: transfer to [facility] for possible catheterization, holding Eliquis Assessment: see above
--- NOTE | 2021-11-13 11:22 | MHC.CM.PN ---
PER MD ROUNDS, PT TO BE TRANSFERRED TO [facility]
== END 2021-11-13 16:39 | disposition short-term general hospital (02) ==
LOC: HO.ED 22:28 → HO.EDOVER 11-13 01:14
PROVIDERS: Admitting Provider Hospitalist; Emergency Provider Internal Medicine; PCP Family Medicine; Visit Provider Internal Medicine
DX: I48.19 Other persistent atrial fibrillation (principal); R07.9 Chest pain, unspecified; R68.84 Jaw pain; I25.110 Atherosclerotic heart disease of native coronary artery with unstable angina pectoris; I10 Essential (primary) hypertension; E78.5 Hyperlipidemia, unspecified; Z20.822 Contact with and (suspected) exposure to COVID-19; Z98.890 Other specified postprocedural states; Z95.5 Presence of coronary angioplasty implant and graft; Z86.74 Personal history of sudden cardiac arrest; Z79.01 Long term (current) use of anticoagulants; Z79.899 Other long term (current) drug therapy
CPT/HCPCS: 36415; 71045; 80048; 84484; 85025; 85027; 85610; 85730; 87635; 93005; 96361; 96365; 96366; 96375; 99219; 99285

== ENCOUNTER 2022-04-17 16:00 | Emergency (ER) | payer MEDICARE, OTHER, SELFPAY ==
--- NOTE | ~2022-04-17 | XR_ITS ---
EXAMINATION: XR CHEST CLINICAL INFORMATION: Chest pain. COMPARISON: 11/12/2021 chest radiograph. TECHNIQUE: 2 views of the chest were obtained. FINDINGS: No significant abnormality is noted involving the heart, lungs, mediastinum, bony thorax or soft tissues. Leadless device overlies the cardiac silhouette. XR/XR chest 2V IMPRESSION: No acute cardiopulmonary process.
[2022-04-17 16:07] VITALS: BP 98/57; PULSE 94; RESP 19; TEMP 36.6; O2SAT 96; BMI 25.9
--- NOTE | 2022-04-17 16:12 | ECG_ITS ---
Test Reason : WEAKNESS Blood Pressure : / mmHG Vent. Rate : 069 BPM Atrial Rate : 000 BPM P-R Int : 000 ms QRS Dur : 070 ms QT Int : 356 ms P-R-T Axes : 000 -31 082 degrees QTc Int : 381 ms Atrial fibrillation with occasional ventricular-paced complexes Left axis deviation Abnormal ECG When compared with ECG of 12-NOV-2021 21:45, ventricular-paced complexes are now Present Referred By: Generic ED Physician Electronically Signed By:MARY ALICE MARRERO MD
[2022-04-17 16:31] LABS: MANUAL DIFF FLAG NO
[2022-04-17 16:33] LABS: Basophils Percent Auto 0.2 % (0-2); Hematocrit 40.4 % (42.0-52.0); Hemoglobin 13.5 g/dl (14.0-18.0); Imm Gran Abs Auto 0.02 X10*3/uL (0.00-0.03); Imm Gran Pct Auto 0.3 % (0.0-0.4); Lymphocytes Absolute Auto 0.3 X10*3/uL (1.2-4.9); Lymphocytes Percent Auto 4.4 % (20-40); Mean Corpuscular HGB Conc 33.4 g/dl (31.0-36.0); Mean Corpuscular Hemoglobin 29.2 pg (27.0-33.0); Mean Corpuscular Volume 87.3 fL (80.0-98.0); Mean Platelet Volume 10.4 fL (9.4-12.4); Monocytes Absolute Auto 0.7 X10*3/uL (0.1-1.2); Monocytes Percent Auto 10.5 % (2-11); Neutrophils Absolute Auto 5.5 x10*3/uL (2.0-8.3); Neutrophils Percent Auto 84.6 % (45-73); Platelet Count 191 X10*3/uL (160-400); Red Blood Count 4.63 X10*6/uL (4.60-5.80); Red Cell Distribution Width 15.3 % (11.0-16.0); White Blood Count 6.6 X10*3/uL (4.8-10.8)
[2022-04-17 16:43] LABS: Prothrombin Time 22.6 SEC (9.9-13.0)
[2022-04-17 16:47] LABS: Anion Gap 13 (12-20); Blood Urea Nitrogen 19 mg/dL (9-16); Calcium 8.6 mg/dL (8.4-10.2); Carbon Dioxide 24 mmol/L (22-29); Chloride 104 mmol/L (96-108); Creatinine Clr Calc Pharmacy 47.8; Estimated Glomerular Filt Rate 59; Glucose Random 115 mg/dL (60-115); Potassium 4.1 mmol/L (3.3-5.1); Sodium 137 mmol/L (135-145)
[2022-04-17 16:52] LABS: Troponin-I High Sensitivity 8.3 ng/L (<3.5-35.0)
--- NOTE | 2022-04-17 17:26 | ED_ITS ---
HPI - General Adult General Chief complaint: General Medical Stated complaint: dizziness/weakness/COVID+ Time Seen by Provider: 04/17/22 17:08 History of Present Illness HPI narrative: Patient is 76-year-old male with a history of testing positive for coronavirus 3 days prior. Positive coughing upper respiratory symptoms positive generalized malaise getting infusion therapy. Not on plaques Lopid status post 2 shots of Pfizer 2 shots of Moderna. Patient from home. After getting his monoclonal antibody infusion patient has chest pain on the left side lasting for few minutes. Denies any diaphoresis positive generalized malaise weakness. Patient has a history of coronary artery disease history of hi cholesterol. Pain is different than previous [place]. Patient from home. Has a history of atrial fibrillation is already on Eliquis. Related Data Home Medications Medication Instructions Recorded Confirmed apixaban 5 mg tablet (Eliquis) 1 tab PO BID 11/13/21 11/13/21 atorvastatin 80 mg tablet 1 tab PO BEDTIME 11/13/21 11/13/21 cyanocobalamin (vitamin B-12) 1,000 mcg PO DAILY 11/13/21 11/13/21 1,000 mcg tablet doxazosin 8 mg tablet 1 tab PO DAILY 11/13/21 11/13/21 famotidine 20 mg tablet 1 tab PO BID 11/13/21 11/13/21 nitroglycerin 0.4 mg sublingual 0.4 mg sublingual Q2M PRN Chest 11/13/21 11/13/21 tablet Pain pyridoxine (vitamin B6) 100 mg 100 mg PO DAILY 11/13/21 11/13/21 tablet thiamine HCl (vitamin B1) 100 mg 50 mg PO DAILY 11/13/21 11/13/21 tablet Allergies Allergy/AdvReac Type Severity Reaction Status Date / Time No Known Allergies Allergy Verified 11/12/21 21:34 [No Known Allergies*] Review of Systems Review of Systems: No fever no chills no diaphoresis Positive coughing upper respiratory symptoms Yes all other systems are reviewed and are negative [facility] Past Medical History Attestation statement: The following information was validated with the patient. Medical History A-fib A-fib Heart attack Social History Social History Alcohol intake: current Alcohol intake frequency: 0-2 drinks per day Alcohol type: hard liquor Patient Tobacco Use Status: Former Tobacco user Use of substances other than those prescribed or required for medical reasons: No Advance Directives: No Advance Directives Information Provided: No service: No Current occupational status: retired Physical Exam ED Vital Signs: Vital Signs - 24 hr 04/17/22 16:07 04/17/22 17:30 Temperature 98 F 98.8 F Pulse Rate 94 99 Respiratory Rate 19 18 Blood Pressure 98/57 L 126/62 Pulse Oximetry 96 96 Oxygen Delivery Method Room Air Room Air BMI result Body Mass Index 25.9 Appearance: Alert. Oriented X3. No acute distress. Eyes: Pupils equal, round and reactive to light. ENT: Pharynx normal. Neck: Normal inspection. Neck supple. No lymph nodes noted. No crepitus CVS: Normal heart rate and rhythm. Pulses normal. Normal S1 and S2 Respiratory: No respiratory distress. Breath sounds normal. No Wheezing. No rales Abdomen: Soft and nontender. No rigidity. No distention. good BS x4 Skin: Skin warm and dry. Normal skin color. Normal skin turgor. Extremities: No lower extremity edema. Neurovascular intact to all extremities. No Lacerations. No Rash Neuro: Oriented X 3. No motor deficit. No sensory deficit. Moving all extermities. No slurred speech Medical Decision Making MDM Narrative Medical decision making narrative: Patient's EKG showed an atrial fibrillation pattern heart rate was 70 QRS QT within normal limits there is no acute ST segment elevation noted. Compared to an old EKG only PVC is different. Otherwise the same. Versus troponin was negative. Will get a 2nd set just to be sure. A chest x-ray is ordered. Adali ent is unlikely to have a pulmonary emboli given he is already on Eliquis. Currently in stable condition. O2 sats 96% on room air in no distress. Speaking complete sentences Two sets of cardiac enzymes unchanged. Patient is to be discharged home. O2 sat is normal no evidence hypoxia in stable condition. Lab Data Result diagrams: 04/17/22 16:25 04/17/22 16:25 Labs: Lab Results 04/17/22 04/17/22 04/17/22 Range/Units 16:25 16:25 16:25 WBC 6.6 (4.8-10.8) X10*3/uL RBC 4.63 (4.60-5.80) X10*6/uL Hgb 13.5 L (14.0-18.0) g/dl Hct 40.4 L (42.0-52.0) % MCV 87.3 (80.0-98.0) fL MCH 29.2 (27.0-33.0) pg MCHC 33.4 (31.0-36.0) g/dl RDW 15.3 (11.0-16.0) % Plt Count 191 (160-400) X10*3/uL MPV 10.4 (9.4-12.4) fL Immature Gran % (Auto) 0.3 (0.0-0.4) % Neut % (Auto) 84.6 H (45-73) % Lymph % (Auto) 4.4 L (20-40) % [place] % (Auto) 10.5 (2-11) % Eos % (Auto) 0.0 (0-4) % Baso % (Auto) 0.2 (0-2) % Lymph # (Auto) 0.3 L (1.2-4.9) X10*3/uL [place] # (Auto) 0.7 (0.1-1.2) X10*3/uL Eos # (Auto) 0.0 (0.0-0.4) X10*3/uL Baso # (Auto) 0.0 (0.0-0.2) X10*3/uL Abs Immat Gran (auto) 0.02 (0.00-0.03) X10*3/uL Absolute Neuts (auto) 5.5 (2.0-8.3) x10*3/uL Absolute Nucleated RBC 0.000 (0.0-0.012) X10*3/uL Nucleated RBC % (auto) 0.0 (0.0-0.2) /100WBC PT (9.9-13.0) SEC INR (0.9-1.1) Sodium 137 (135-145) mmol/L Potassium 4.1 (3.3-5.1) mmol/L Chloride 104 (96-108) mmol/L Carbon Dioxide 24 (22-29) mmol/L Anion Gap 13 (12-20) BUN 19 H (9-16) mg/dL Creatinine 1.19 (0.5-1.4) mg/dL Estim Creat Clear Calc 47.8 Estimated GFR 59 Random Glucose 115 D (60-115) mg/dL Calcium 8.6 (8.4-10.2) mg/dL Troponin I High Sens 8.3 D (<3.5-35.0) ng/L 04/17/22 04/17/22 Range/Units 16:25 17:57 WBC (4.8-10.8) X10*3/uL RBC (4.60-5.80) X10*6/uL Hgb (14.0-18.0) g/dl Hct (42.0-52.0) % MCV (80.0-98.0) fL MCH (27.0-33.0) pg MCHC (31.0-36.0) g/dl RDW (11.0-16.0) % Plt Count (160-400) X10*3/uL MPV (9.4-12.4) fL Immature Gran % (Auto) (0.0-0.4) % Neut % (Auto) (45-73) % Lymph % (Auto) (20-40) % [place] % (Auto) (2-11) % Eos % (Auto) (0-4) % Baso % (Auto) (0-2) % Lymph # (Auto) (1.2-4.9) X10*3/uL [place] # (Auto) (0.1-1.2) X10*3/uL Eos # (Auto) (0.0-0.4) X10*3/uL Baso # (Auto) (0.0-0.2) X10*3/uL Abs Immat Gran (auto) (0.00-0.03) X10*3/uL Absolute Neuts (auto) (2.0-8.3) x10*3/uL Absolute Nucleated RBC (0.0-0.012) X10*3/uL Nucleated RBC % (auto) (0.0-0.2) /100WBC PT 22.6 H (9.9-13.0) SEC INR 2.0 H (0.9-1.1) Sodium (135-145) mmol/L Potassium (3.3-5.1) mmol/L Chloride (96-108) mmol/L Carbon Dioxide (22-29) mmol/L Anion Gap (12-20) BUN (9-16) mg/dL Creatinine (0.5-1.4) mg/dL Estim Creat Clear Calc Estimated GFR Random Glucose (60-115) mg/dL Calcium (8.4-10.2) mg/dL Troponin I High Sens 7.9 (<3.5-35.0) ng/L Discharge Plan Discharge Clinical Impression: COVID-19 Patient Disposition: Home, Self-Care Instructions: COVID-19 (Coronavirus Disease 2019) (ED) Prescriptions: No Action atorvastatin 80 mg tablet 1 tab PO BEDTIME cyanocobalamin (vitamin B-12) 1,000 mcg Tablet 1,000 mcg PO DAILY thiamine HCl (vitamin B1) 100 mg Tablet 50 mg PO DAILY doxazosin 8 mg tablet 1 tab PO DAILY famotidine 20 mg tablet 1 tab PO BID nitroglycerin 0.4 mg tablet, sublingual 0.4 mg sublingual Q2M PRN (Reason: Chest Pain) pyridoxine (vitamin B6) 100 mg Tablet 100 mg PO DAILY Eliquis 5 mg tablet 1 tab PO BID Hold Instructions: Resume on 11/17/21. Referrals: Jennifer Barlow MD [Primary Care Provider] -
[2022-04-17 17:30] VITALS: BP 126/62; PULSE 99; RESP 18; TEMP 37.1; O2SAT 96
[2022-04-17 18:20] LABS: Troponin-I High Sensitivity 7.9 ng/L (<3.5-35.0)
== END 2022-04-17 19:14 | disposition home or self-care (01) ==
PROVIDERS: Emergency Provider Emergency Medicine Emergency Medical Services; PCP Family Medicine
DX: U07.1 COVID-19 (principal); R42 Dizziness and giddiness; R05.9 Cough, unspecified; Z79.899 Other long term (current) drug therapy; Z87.891 Personal history of nicotine dependence
CPT/HCPCS: 36415; 71046; 80048; 84484; 85025; 85610; 93005; 99283; 99284

== ENCOUNTER 2023-09-02 14:19 | Emergency (ER) | payer MEDICARE, OTHER, SELFPAY ==
--- NOTE | ~2023-09-02 | XR_ITS ---
X-RAY LUMBAR SPINE X-RAY SACROILIAC JOINTS CLINICAL HISTORY: Pain. COMPARISON: No relevant prior studies are available for comparison. TECHNIQUE: 3 views of the lumbar spine. 2 views of the sacroiliac joints. FINDINGS: Lumbar spine: No evidence of acute compression deformity or traumatic subluxation. Trace stepwise retrolisthesis from L2 through S1. Severe intervertebral disc height loss at L5-S1. Severe facet arthropathy from L4 through S1 leading to central canal stenosis and neural foraminal encroachment. Multilevel anterior osteophytes. Biiliac vascular stents. Scattered vascular calcifications. No significant paraspinal soft tissue abnormality. Sacroiliac joints: Symmetric SI joints. No erosive changes. No discrete displaced fractures or subluxation. Pubic symphysis is maintained. 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 Scattered vascular calcifications. XR/XR sacroiliac joint 1-2V IMPRESSION: 1. No acute compression deformity or malalignment. 2. Severe lower lumbar spondylosis, most marked at L5-S1. 3. Symmetric SI joints. No evidence of acute fractures or malalignment. 4. 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
--- NOTE | ~2023-09-02 | XR_ITS ---
X-RAY LUMBAR SPINE X-RAY SACROILIAC JOINTS CLINICAL HISTORY: Pain. COMPARISON: No relevant prior studies are available for comparison. TECHNIQUE: 3 views of the lumbar spine. 2 views of the sacroiliac joints. FINDINGS: Lumbar spine: No evidence of acute compression deformity or traumatic subluxation. Trace stepwise retrolisthesis from L2 through S1. Severe intervertebral disc height loss at L5-S1. Severe facet arthropathy from L4 through S1 leading to central canal stenosis and neural foraminal encroachment. Multilevel anterior osteophytes. Biiliac vascular stents. Scattered vascular calcifications. No significant paraspinal soft tissue abnormality. Sacroiliac joints: Symmetric SI joints. No erosive changes. No discrete displaced fractures or subluxation. Pubic symphysis is maintained. 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 Scattered vascular calcifications. XR/XR lumbar spine 2-3V IMPRESSION: 1. No acute compression deformity or malalignment. 2. Severe lower lumbar spondylosis, most marked at L5-S1. 3. Symmetric SI joints. No evidence of acute fractures or malalignment. 4. 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
[2023-09-02 15:26] VITALS: BP 126/78; PULSE 72; RESP 18; TEMP 36.4; O2SAT 96; BMI 25.5
--- NOTE | 2023-09-02 16:58 | ED_ITS ---
HPI - Back Pain/Injury General Chief Complaint: Back Pain/Injury Stated Complaint: Lower back pain Time Seen by Provider: 09/02/23 16:38 Source: patient Mode of arrival: wheelchair Limitations: no limitations History of Present Illness HPI Narrative: Patient is a 77-year-old male presenting to the emergency department with acute exacerbation of chronic low back pain. Patient reports that he has had lower back pain for the past 20 years but that it is usually tolerable. States that over the past 24 hours pain has significantly increased and worsens with any movement. Reports typically he only has pain which worsens with bending forward. He reports the pain occasionally shoots up his back. He denies any radiation of pain down his legs, denies any numbness or tingling to legs. Denies any saddle anesthesia or bowel or bladder incontinence. Denies any fevers. Denies any urinary frequency, dysuria, hematuria or other urinary symptoms. Denies any falls or other recent trauma. He used Aleve as well as topical lidocaine at home today with little relief. MD elicited complaint: back pain Pertinent past history: prior back pain Onset (ago): hour(s) Timing: constant Severity: severe Similar Symptoms Previously: Yes Quality: aching Location: lumbar spine and sacrum (bilateral SI joints) Exacerbating factors: movement Relieving factors: sitting upright Associated symptoms: denies other symptoms Treatments prior to arrival: NSAIDS and other medications Work related injury: No Related Data Home Medications Medication Instructions Recorded Confirmed apixaban 5 mg tablet (Eliquis) 1 tab PO BID 11/13/21 11/13/21 atorvastatin 80 mg tablet 1 tab PO BEDTIME 11/13/21 11/13/21 cyanocobalamin (vitamin B-12) 1,000 mcg PO DAILY 11/13/21 11/13/21 1,000 mcg tablet doxazosin 8 mg tablet 1 tab PO DAILY 11/13/21 11/13/21 famotidine 20 mg tablet 1 tab PO BID 11/13/21 11/13/21 nitroglycerin 0.4 mg sublingual 0.4 mg sublingual Q2M PRN Chest 11/13/21 11/13/21 tablet Pain pyridoxine (vitamin B6) 100 mg 100 mg PO DAILY 11/13/21 11/13/21 tablet thiamine HCl (vitamin B1) 100 mg 50 mg PO DAILY 01/20/22 01/20/22 tablet Previous Rx's Medication Instructions Recorded cyclobenzaprine 5 mg tablet 5 mg PO TID PRN muscle spasm #10 09/02/23 tabs lidocaine 5 % topical patch 1 patch topical DAILY #15 ea 09/02/23 Allergies Allergy/AdvReac Type Severity Reaction Status Date / Time No Known Allergies Allergy Verified 09/02/23 15:26 [No Known Allergies*] Review of Systems Review of Systems: As per HPI. Yes all other systems are reviewed and are negative Constitutional: Constitutional: Reports as per HPI [facility] Past Medical History Medical History A-fib A-fib Heart attack Social History Social History Alcohol intake: current Alcohol intake frequency: 0-2 drinks per day Alcohol type: hard liquor Patient Tobacco Use Status: Former Tobacco user Advance Directives: No service: No Current occupational status: retired Physical Exam Vital Signs: Vital Signs: Last Vital Signs Temp 98.0 F 09/02/23 20:08 Pulse 70 09/02/23 20:08 Resp 17 09/02/23 20:08 BP 140/80 H 09/02/23 20:08 Pulse Ox 97 09/02/23 20:08 O2 Del Method Room Air 09/02/23 20:08 BMI result Body Mass Index 25.5 Vital signs have been reviewed and appear to be correct. Blood pressure normal. Heart rate normal. Respiratory rate normal. Temperature normal. Oxygen saturation normal. Const: General: cooperative, healthy appearing and no acute distress Orientation/consciousness: oriented to person, oriented to place, oriented to time and patient oriented x3 Limitations: no limitations HEENT: Head: Yes normocephalic and Yes atraumatic Ears: external ears normal General nose exam: Normal external nose present Face and sinus: Yes face symmetric Mouth: oropharynx normal and moist mucous membranes Throat: Yes uvula midline Eyes: Pupils: Equal, round and reactive pupils present Neck: Neck: Yes normal visual inspection and Yes supple Resp: Effort & Inspection: normal respiratory effort and able to speak in complete sentences Auscultation: clear to auscultation bilaterally Cardio: Rate: regular rate Rhythm: regular rhythm Heart sounds: S1 normal heart sound present and S2 normal heart sound present GI: Palpation (GI): Soft to palpation and nontender Auscultation: normoactive bowel sounds : General: Yes no CVA tenderness Back/Spine/Pelvis: Back: no CVA tenderness Thoracic/Lumbar Spine: thoracic and lumbar spine normal to inspection, pain with thoraco-lumbar ROM, paraspinal muscle tenderness bilaterally in the lower lumbar, thoraco-lumbar ROM limited with forward flexion, No thoracic spinal tenderness, No lumbar spinal tenderness and straight leg raise positive bilateral Pelvis: no pain with anterior- posterior compression and no pain with lateral compression Sacroiliac joints: bilaterally tender to palpation Skin: General skin exam: elasticity normal and turgor normal Neuro: General: oriented to person, oriented to place, oriented to time, patient oriented x3, moves all extremities, no focal motor deficits and CN's II- XI intact bilaterally Cranial nerves: Yes Equal, round and reactive pupils present Cognition (Neuro): normal cognition Extrem: General: Yes full ROM, Yes no pedal edema and Yes no calf tenderness Psych: Mental Status: mental status grossly normal Affect: normal affect Thought process: Normal thought process present Course Reevaluation(s) Reevaluation #1: Patient received in sign-out at change in shift pending x-rays and urine sample. Patient's x-ray shows significant arthritis which was expected. At the time my evaluation he reports his pain is greatly improved body size mild discomfort. His UA significant for a small amount of hematuria which she was unaware of. There is no evidence of UTI. I discussed possible CT imaging with the patient to rule out obstructive uropathy further causes back pain. Patient declined this exam is he currently feels well. He agrees to follow his doctor for repeat UA in 1-2 weeks Time: 20:11 Medical Decision Making Medical Decision Making [facility] Narrative: Patient is a 77-year-old male presenting to the emergency department with acute exacerbation of chronic low back pain. On exam patient is awake, A+Ox3, VS WNL, afebrile, normal neurological exam without focal deficits, physical exam findings as above. Given reported symptoms and physical exam findings, initial differential includes lumbar strain, osteoarthritis, spondolythesis, UTI. No red flag findings concerning for spinal epidural abscess, cauda equina, cord compression. Patient signed out to BARBRA Vu pending UA and x-ray results. Differential Diagnosis Differential Diagnoses: The differential diagnosis associated with the presentation includes As per MDM. Lab Data Labs: Lab Results 11/09/23 Range/Units 18:57 Urine Color Dark Yellow Urine Appearance Clear Urine pH 5.5 (5.0-9.0) Ur Specific [place] >= 1.030 H (1.005-1.025) Urine Protein 30 (1+) H (Neg-Trace) mg/dL Urine Glucose (UA) Negative (Negative) mg/dL Urine Ketones Trace (Negative) mg/dL Urine Blood Negative (Negative) Urine Nitrite Negative (Negative) Ur Leukocyte Esterase Negative (Negative) Urine RBC 11-20 H (0-2) /HPF Urine WBC 0-5 (0-5) /HPF Ur Squamous Epith Cells 0-2 (0-2) /HPF Urine Bacteria Trace (None Seen) Hyaline Casts 0-2 (0-2) /LPF Independent Interpretation I performed an independent interpretation of an: Plain X-Ray External Record Review External record reviewed: Inpatient record, Office record and Outpatient record Tests considered The following testing was considered but not selected: Considered CT abdomen pelvis but patient declined Prescription Management I considered prescription management with: Pain Medication and Other Discharge Plan Discharge Clinical Impression: Acute exacerbation of chronic low back pain Patient Disposition: Home, Self-Care Instructions: Acute Low Back Pain (ED) Additional Instructions: Your urine sample had a small amount of blood in it. Ultimately we decided against getting abdominal CT scan to rule out kidney stones as the cause of your back pain Follow-up with your primary doctor in 1-2 weeks for a repeat urinalysis If you are still having blood in the urine, you may require either a CT scan of the abdomen pelvis or follow-up with Urology for a cystoscopy You were evaluated in the emergency department today for back pain. Your evaluation did not show signs of medical conditions requiring emergent intervention at this time. We recommended that you use ibuprofen or Tylenol per package directions every 6 hours as needed for pain. If necessary, you can alternate these medications so that you take one medication every 3 hours. For instance, at noon take ibuprofen, then at 3:00 p.m. take Tylenol, then at 6:00 p.m. take ibuprofen. You have been prescribed a muscle relaxer which you may take every 8 hours as needed for spasms. You have been prescribed 5% topical lidocaine patches which you can wear for up to 12 hours in a 24 hour period. Do not apply heat directly over the patches. Please schedule an appointment for follow-up with your primary care physician this week for further evaluation of your symptoms. Return to the emergency department if you experience worsening back pain, difficulty walking, fevers, numbness, tingling, incontinence, groin numbness or tingling, or any other concerning symptoms. Prescriptions: New cyclobenzaprine 5 mg tablet 5 mg PO TID PRN (Reason: muscle spasm) Qty: 10 0RF lidocaine 5 % adhesive patch,medicated 1 patch topical DAILY Qty: 15 0RF Rx Instructions: leave on most painful area for up to 12 hrs No Action atorvastatin 80 mg tablet 1 tab PO BEDTIME cyanocobalamin (vitamin B-12) 1,000 mcg Tablet 1,000 mcg PO DAILY thiamine HCl (vitamin B1) 100 mg Tablet 50 mg PO DAILY doxazosin 8 mg tablet 1 tab PO DAILY famotidine 20 mg tablet 1 tab PO BID nitroglycerin 0.4 mg tablet, sublingual 0.4 mg sublingual Q2M PRN (Reason: Chest Pain) pyridoxine (vitamin B6) 100 mg Tablet 100 mg PO DAILY Eliquis 5 mg tablet 1 tab PO BID Hold Instructions: Resume on 11/17/21.
[2023-09-02 19:07] LABS: Appearance Urine Clear; Color Urine Dark Yellow; Glucose Urine UA Negative (Negative); Leukocyte Esterase Urine Negative (Negative); Nitrite Urine Negative (Negative); PH 5.5 (5.0-9.0); Specific Gravity - Urine >= 1.030 (1.005-1.025); UMIC TRIGGER UACC YES; Urine Blood Negative (Negative); Urine Ketones Trace mg/dL (Negative); Urine Protein 30 (1+) mg/dL (Neg-Trace)
[2023-09-02 19:16] LABS: Bacteria Urine Trace (None Seen); Hyaline Casts Urine 0-2 /LPF (0-2); Squamous Epithelial Cell Urine 0-2 /HPF (0-2); WBC Urine 0-5 /HPF (0-5)
[2023-09-02 20:08] VITALS: BP 140/80; PULSE 70; RESP 17; TEMP 36.7; O2SAT 97
== END 2023-09-02 20:19 | disposition home or self-care (01) ==
PROVIDERS: Registered Nurse Emergency; Emergency Provider Emergency Medicine; PCP Ophthalmology
DX: M54.50 Low back pain, unspecified (principal); G89.29 Other chronic pain; Z87.891 Personal history of nicotine dependence; I48.91 Unspecified atrial fibrillation; Z79.899 Other long term (current) drug therapy
CPT/HCPCS: 72100; 72200; 81001; 99283; 99284

== ENCOUNTER 2024-06-07 08:56 | Emergency (ER) | payer MEDICARE, OTHER, SELFPAY ==
[2024-06-07] VITALS (7 sets, daily range): BP systolic 133–150; BP diastolic 73–87; PULSE 59–72; RESP 13–18; TEMP 36.7–37.1; O2SAT 95–98; BMI 25.9
--- NOTE | ~2024-06-07 | CT_ITS ---
EXAMINATION: CT HEAD WITHOUT CONTRAST CLINICAL INFORMATION: Dizziness and headache COMPARISON: Head MRI from 09/03/2020 TECHNIQUE: Contiguous axial imaging was performed from the skull base to vertex without intravenous administration of contrast. This CT examination was performed using dose optimization techniques as appropriate, variously including the following: *Automated exposure control *Adjustment of mA and/or kV according to patient size (this includes techniques or standardized protocols for targeted exams where dose is matched to indication/reason for exam; i.e. extremities or head) *Use of iterative reconstruction technique DLP: 653 mGy-cm FINDINGS: No acute findings. No intracranial hemorrhage, extra-axial surface collection, focal mass effect or midline shift. Atherosclerotic calcification of cavernous carotid arteries. Patchy hypoattenuation within the supratentorial white matter is compatible with sequela of chronic mild microangiopathy. The gillespie-white matter differentiation is maintained. No evidence of an acute major vascular territory infarction. Mild parenchymal volume loss and commensurate prominence of ventricles and sulci. No hydrocephalus. The cerebellar tonsils are in normal position. The calvarium is intact. The visualized paranasal sinuses are well aerated. There appear to be chronic mild bilateral mastoid effusions. The orbits and globes are unremarkable. Temporomandibular joints are normal. CT/CT head/brain wo IV con IMPRESSION: No acute intracranial pathology compared to the brain MRI from 09/03/2020.
--- NOTE | ~2024-06-07 | XR_ITS ---
EXAMINATION: XR CHEST CLINICAL INFORMATION: Pain COMPARISON: 04/17/2022 TECHNIQUE: Frontal view of the chest was obtained. FINDINGS: Lungs are well expanded. No acute pulmonary disease. No consolidation, pleural effusion or pneumothorax. Micra leadless pacemaker overlies left side of the cardiac silhouette. The heart size is normal. Pulmonary vascular pattern is normal. No acute osseous abnormality. XR/XR chest 1V IMPRESSION: No acute pulmonary disease.
--- NOTE | 2024-06-07 08:59 | ECG_ITS ---
Test Reason : CHEST PAIN Blood Pressure : / mmHG Vent. Rate : 064 BPM Atrial Rate : 000 BPM P-R Int : 000 ms QRS Dur : 070 ms QT Int : 404 ms P-R-T Axes : 000 -26 019 degrees QTc Int : 416 ms Atrial fibrillation Abnormal ECG When compared with ECG of 17-APR-2022 16:14, No significant changes seen Referred By: Generic ED Physician Electronically Signed By:LISETTE YIP
[2024-06-07 09:37] LABS: MANUAL DIFF FLAG NO
[2024-06-07 09:40] LABS: Basophils Percent Auto 0.5 % (0-2); Eosinophils Absolute Auto 0.2 X10*3/uL (0.0-0.4); Eosinophils Percent Auto 2.8 % (0-4); Hematocrit 40.1 % (42.0-52.0); Hemoglobin 13.1 g/dl (14.0-18.0); Imm Gran Abs Auto 0.03 X10*3/uL (0.00-0.03); Imm Gran Pct Auto 0.4 % (0.0-0.4); Lymphocytes Absolute Auto 0.6 X10*3/uL (1.2-4.9); Lymphocytes Percent Auto 7.1 % (20-40); Mean Corpuscular HGB Conc 32.7 g/dl (31.0-36.0); Mean Corpuscular Hemoglobin 27.1 pg (27.0-33.0); Mean Platelet Volume 10.2 fL (9.4-12.4); Monocytes Absolute Auto 0.8 X10*3/uL (0.1-1.2); Monocytes Percent Auto 9.9 % (2-11); Neutrophils Absolute Auto 6.2 x10*3/uL (2.0-8.3); Neutrophils Percent Auto 79.3 % (45-73); Platelet Count 254 X10*3/uL (160-400); Red Blood Count 4.83 X10*6/uL (4.60-5.80); Red Cell Distribution Width 17.3 % (11.0-16.0); White Blood Count 7.8 X10*3/uL (4.8-10.8)
[2024-06-07 09:45] LABS: INTERNATIONAL NORM RATIO 1.9 (0.9-1.1); Prothrombin Time 23.3 SEC (11.1-13.3)
--- NOTE | 2024-06-07 09:48 | ED.DIZZY ---
HPI - Dizziness General Chief Complaint: Dizziness Stated Complaint: CP and headache Time Seen by Provider: 06/07/24 09:23 Source: patient and old records reviewed Mode of arrival: ambulatory Limitations: no limitations History of Present Illness ED Provider: RAMIRO EVANS Narrative: 78 yo male with PMH of afib on eliquis, HLD, GERD, CAD with hx of cardiac cath in 2018 50% prox LAD and mid LAD stenosis, 65% prox left circumflex stenosis, mid RCA 45% stenosis here with c/o chest pain starting during sleep this AM about 8am without nausea, dizziness, dyspnea. This happens occasionally he took 1 SL nitro no relief. Took a 2nd one which he has done before about a few months ago. Then noted a [place] in his head a tight like band and felt dizzy when walking and standing up. Headache has improved but it still feels tight. He has no dizziness but thinks if he tries to walk he will feel dizzy. He has no chest pain now. He denies any recent exertional symptoms, fatigue, increased pain. MD elicited complaint: lightheadedness and other (chest pain) Onset (ago): hour(s) (8am) Timing: gradual onset Severity: mild Description: lightheadedness Context: change in body position and other (10 min after 2nd nitro) History of similar symptoms: No Exacerbating factors: movement/ambulation and change in body position Relieving factors: nothing Associated symptoms: chest pain Related Data Home Medications ?Medication ?Instructions ?Recorded ?Confirmed apixaban 5 mg tablet (Eliquis) 1 tab PO BID 11/13/21 11/13/21 atorvastatin 80 mg tablet 1 tab PO BEDTIME 11/13/21 11/13/21 cyanocobalamin (vitamin B-12) 1,000 mcg PO DAILY 11/13/21 11/13/21 1,000 mcg tablet doxazosin 8 mg tablet 1 tab PO DAILY 11/13/21 11/13/21 famotidine 20 mg tablet 1 tab PO BID 11/13/21 11/13/21 nitroglycerin 0.4 mg sublingual 0.4 mg sublingual Q2M PRN Chest 11/13/21 11/13/21 tablet Pain pyridoxine (vitamin B6) 100 mg 100 mg PO DAILY 11/13/21 11/13/21 tablet thiamine HCl (vitamin B1) 100 mg 50 mg PO DAILY 11/13/21 11/13/21 tablet Previous Rx's ?Medication ?Instructions ?Recorded cyclobenzaprine 5 mg tablet 5 mg PO TID PRN muscle spasm #10 09/02/23 tabs lidocaine 5 % topical patch 1 patch topical DAILY #15 ea 09/02/23 Allergies Allergy/AdvReac Type Severity Reaction Status Date / Time No Known Allergies Allergy Verified 06/07/24 09:18 [No Known Allergies*] Review of Systems Review of Systems: Constitutional : No Weight loss, No Fever, No Chills ENT/Mouth : No sore throat, No Rhinorrhea Eyes: No Eye Pain, No Swelling Cardiovascular : pos Chest Pain, no SOB, no Dyspnea on Exertion, No Orthopnea, No Edema, No Palpitations Respiratory : No Cough, No Sputum Gastrointestinal : no Nausea, No Vomiting, No Diarrhea, No abdominal Pain, No Hematochezia, No Melena Genitourinary : No Dysuria, No Urinary Frequency Musculoskeletal : No joint pain, No Myalgias, No Joint Swelling Skin : No Skin Lesions, No rash Neuro : No Weakness, No Numbness, pos Dizziness, pos Headache Psych : No Anxiety/Panic, No Depression All other systems reviewed and are negative [facility] Past Medical History Attestation statement: The following information was validated with the patient. Source: old records reviewed Medical History Heart attack A-fib A-fib Social History Social History Alcohol intake: current Alcohol intake frequency: 0-2 drinks per day Alcohol type: hard liquor Patient Tobacco Use Status: Former Tobacco user Smoked in Last 30 Days: No Use of substances other than those prescribed or required for medical reasons: No Advance Directives: Yes Advance Directives on File: Yes Advance Directives Date on File: 09/03/20 service: No Current occupational status: retired Physical Exam Vital Signs: Vital Signs: Last Vital Signs Temp 98.0 F 06/07/24 11:18 Pulse 59 06/07/24 12:37 Resp 13 06/07/24 12:37 BP 133/86 06/07/24 12:37 Pulse Ox 95 06/07/24 12:37 O2 Del Method Room Air 06/07/24 12:37 BMI result Body Mass Index 25.9 Appearance: Alert. Oriented X3. No acute distress. Eyes: Pupils equal, round and reactive to light. ENT: Pharynx normal. Neck: Normal inspection. Neck supple. CVS: Normal heart rate and rhythm. Pulses normal. Respiratory: No respiratory distress. Breath sounds normal. Abdomen: Soft and nontender. Skin: Skin warm and dry. Normal skin color. Normal skin turgor. Extremities: No lower extremity edema. No calf ttp Neuro: Oriented X 3. No motor deficit. No sensory deficit. CN2-12 intact, no drift Course Course Course Narrative: up and walking steady gait stable for DC Medical Decision Making Medical Decision Making [facility] Narrative: 78 yo male with PMH of afib on eliquis, HLD, GERD, CAD with hx of cardiac cath in 2018 with ds in LAD, Lcirc, RCA here with c/o chest pain this AM that took 2 SL nitro to resolve has not noted any increase in chest pain recently with exertion. He then had headaches and dizziness after 2nd SL nitro at this time will need troponin x 2, CT head though I really do think this related to nitro use, EKG, ortho VS Differential Diagnosis Differential Diagnoses: The differential diagnosis associated with the presentation includes angina, med reaction, orthostatic Admission/Observation Consideration of admission/observation: Escalation of care including admission/observation considered no exertional chest pain, nonischemic EKG, neg trop x 2, CT head negative, neg ortho VS Lab Data [facility] Lab Attestation statement: I reviewed the patient's lab results. 06/07/24 09:30 06/07/24 09:30 Labs: Lab Results 06/07/24 06/07/24 Range/Units 09:30 12:35 WBC 7.8 (4.8-10.8) X10*3/uL RBC 4.83 (4.60-5.80) X10*6/uL Hgb 13.1 L (14.0-18.0) g/dl Hct 40.1 L (42.0-52.0) % MCV 83.0 (80.0-98.0) fL MCH 27.1 (27.0-33.0) pg MCHC 32.7 (31.0-36.0) g/dl RDW 17.3 H (11.0-16.0) % Plt Count 254 D (160-400) X10*3/uL MPV 10.2 (9.4-12.4) fL Immature Gran % (Auto) 0.4 (0.0-0.4) % Neut % (Auto) 79.3 H (45-73) % Lymph % (Auto) 7.1 L (20-40) % [place] % (Auto) 9.9 (2-11) % Eos % (Auto) 2.8 (0-4) % Baso % (Auto) 0.5 (0-2) % Lymph # (Auto) 0.6 L (1.2-4.9) X10*3/uL [place]ron # (Auto) 0.8 (0.1-1.2) X10*3/uL Eos # (Auto) 0.2 (0.0-0.4) X10*3/uL Baso # (Auto) 0.0 (0.0-0.2) X10*3/uL Abs Immat Gran (auto) 0.03 (0.00-0.03) X10*3/uL Absolute Neuts (auto) 6.2 (2.0-8.3) x10*3/uL Absolute Nucleated RBC 0.000 (0.0-0.012) X10*3/uL Nucleated RBC % (auto) 0.0 (0.0-0.2) /100WBC PT 23.3 H (11.1-13.3) SEC INR 1.9 H (0.9-1.1) Sodium 141 (135-145) mmol/L Potassium 4.0 (3.3-5.1) mmol/L Chloride 109 H (96-108) mmol/L Carbon Dioxide 27 (22-29) mmol/L Anion Gap 9 L (12-20) BUN 20 H (9-16) mg/dL Creatinine 1.04 (0.5-1.4) mg/dL Estim Creat Clear Calc 54.8 Estimated GFR > 60 Random Glucose 93 (60-115) mg/dL Calcium 9.1 (8.4-10.2) mg/dL Magnesium 2.1 (1.6-2.6) mg/dL Troponin I High Sens < 2.7 < 2.7 (<3.5-35.0) ng/L B-Natriuretic Peptide 222 H (<100) pg/mL Independent Interpretation I performed an independent interpretation of an: EKG, Plain X-Ray (normal ) and CT Scan (no acute ICH) Interpretation: Rate: 64 Rhythm: afib with PVCs [place]: left Normal QRS complex. ST T wave : no VANDANA, nonspecific ST T wave chagnes qTC: 418 prior studies: no acute ischemia The study has been interpreted contemporaneously by me. . Radiology Impression Discussion of test interpretation with radiology: I have reviewed the radiologist's reading. Independent Historian Clinical information obtained from an independent historian. History obtained from or confirmed by: Spouse External Record Review External record reviewed: Office record Discharge Plan Discharge Clinical Impression: Atypical chest pain, Dizziness Patient Disposition: Home, Self-Care Instructions: Chest Pain (ED), Dizziness (ED) Additional Instructions: return for worsening symptoms or concerns please call your technical services analyst take your medications as prescribed labs and EKG, CT head reassuring Prescriptions: No Action atorvastatin 80 mg tablet 1 tab PO BEDTIME cyanocobalamin (vitamin B-12) 1,000 mcg Tablet 1,000 mcg PO DAILY thiamine HCl (vitamin B1) 100 mg Tablet 50 mg PO DAILY doxazosin 8 mg tablet 1 tab PO DAILY famotidine 20 mg tablet 1 tab PO BID nitroglycerin 0.4 mg tablet, sublingual 0.4 mg sublingual Q2M PRN (Reason: Chest Pain) pyridoxine (vitamin B6) 100 mg Tablet 100 mg PO DAILY Eliquis 5 mg tablet 1 tab PO BID Hold Instructions: Resume on 11/17/21. cyclobenzaprine 5 mg tablet 5 mg PO TID PRN (Reason: muscle spasm) Qty: 10 0RF lidocaine 5 % adhesive patch,medicated 1 patch topical DAILY Qty: 15 0RF Rx Instructions: leave on most painful area for up to 12 hrs Referrals: Felix Tafoya MD [Physician] - (cardiology call to schedule) Print Language: Mosotho
[2024-06-07 09:53] LABS: Anion Gap 9 (12-20); Blood Urea Nitrogen 20 mg/dL (9-16); Calcium 9.1 mg/dL (8.4-10.2); Carbon Dioxide 27 mmol/L (22-29); Chloride 109 mmol/L (96-108); Creatinine Clr Calc Pharmacy 54.8; Estimated Glomerular Filt Rate > 60; Glucose Random 93 mg/dL (60-115); Magnesium 2.1 mg/dL (1.6-2.6); Sodium 141 mmol/L (135-145)
[2024-06-07 09:58] LABS: B Type Natriuretic Peptide 222 pg/mL (<100)
[2024-06-07 10:00] LABS: Troponin-I High Sensitivity < 2.7 ng/L (<3.5-35.0)
--- NOTE | 2024-06-07 10:31 | PC.NURSE ---
Pt alert and oriented, breathing even and unlabored, skin WNL. NSR on bedside fitter up. Pt denies any pain. Reported episode of chest pain this morning, took 2 prescribed nitros at home, after second one had headache and dizziness. Denies CP or headache at this time.
[2024-06-07 13:04] LABS: Troponin-I High Sensitivity < 2.7 ng/L (<3.5-35.0)
== END 2024-06-07 13:26 | disposition home or self-care (01) ==
PROVIDERS: Emergency Provider Emergency Medicine
DX: R07.89 Other chest pain (principal); R42 Dizziness and giddiness; I48.91 Unspecified atrial fibrillation; I25.10 Atherosclerotic heart disease of native coronary artery without angina pectoris; R06.02 Shortness of breath; Z79.899 Other long term (current) drug therapy; Z79.01 Long term (current) use of anticoagulants
CPT/HCPCS: 36415; 70450; 71045; 80048; 83735; 83880; 84484; 85025; 85610; 93005; 99284; 99285

== ENCOUNTER → 2024-06-07 08:59 | Outpatient (BNV) | payer MEDICARE, OTHER, SELFPAY | PROVIDERS: Emergency Provider Emergency Medicine; Visit Provider Internal Medicine | DX: R07.9 Chest pain, unspecified (principal); I48.91 Unspecified atrial fibrillation; R94.31 Abnormal electrocardiogram [ECG] [EKG] | CPT/HCPCS: 93010 ==

== ENCOUNTER 2024-09-25 14:45 | Emergency (ER) | payer MEDICARE, OTHER, SELFPAY ==
--- NOTE | ~2024-09-25 | CT_ITS ---
EXAMINATION: CT HEAD WITHOUT CONTRAST (STROKE PROTOCOL) CLINICAL INFORMATION: Stroke protocol. Difficulty speaking. Mild right-sided weakness. COMPARISON: CT head dated June 07, 2024 TECHNIQUE: Contiguous axial imaging was performed from the skull base to vertex without intravenous administration of contrast. This CT examination was performed using dose optimization techniques as appropriate, variously including the following: *Automated exposure control *Adjustment of mA and/or kV according to patient size (this includes techniques or standardized protocols for targeted exams where dose is matched to indication/reason for exam; i.e. extremities or head) *Use of iterative reconstruction technique DLP: 650 mGy-cm FINDINGS: There is extensive intraventricular hemorrhage involving the left lateral ventricle, third ventricle, and to a lesser extent fourth ventricle. The left lateral ventricle is casted with blood. The left lateral ventricle is dilated. There does not appear to be a substantial parenchymal component to the hemorrhage. There is mild microvascular ischemic change. There is no midline shift. There is developing hydrocephalus. The visualized paranasal sinuses are clear. There is a small inferior right mastoid air cell effusion. CT/CT head for STROKE IMPRESSION: There is extensive intraventricular hemorrhage involving the left lateral ventricle, third ventricle, and to a lesser extent fourth ventricle. The left lateral ventricle is casted with blood. There is developing hydrocephalus. This critical result was discussed with Dr Singletary at 3:27 PM hours on 09/25/2024. It was ascertained that the content and urgency of the report was understood at the time of direct communication. Electronically signed by: Leo Woodson DO 09/25/2024 03:28 PM MARIELA
--- NOTE | ~2024-09-25 | CT_ITS ---
EXAMINATION: CT ANGIOGRAM HEAD AND NECK WITHOUT AND WITH CONTRAST CLINICAL INFORMATION: INTRAVENTRICULAR HEMORRHAGE. COMPARISON: NONCONTRAST CT HEAD DATED SEPTEMBER 25, 2024. TECHNIQUE: CONTIGUOUS AXIAL CT IMAGES WERE OBTAINED FROM THE AORTIC ARCH TO THE VERTEX OF THE HEAD FOLLOWING THE ADMINISTRATION OF 50 ML OF OMNIPAQUE 350 INTRAVENOUS CONTRAST. THE DATA WAS TRANSFERRED TO AN INDEPENDENT WORKSTATION, WHERE 3-D RECONSTRUCTIONS WERE PERFORMED. PRE-AND POSTCONTRAST HEAD CTS WERE ALSO PERFORMED. THE DEGREE OF STENOSIS DETERMINED BY NASCET CRITERIA. THIS CT EXAMINATION WAS PERFORMED USING DOSE OPTIMIZATION TECHNIQUES APPROPRIATE, VARIOUSLY INCLUDING THE FOLLOWING: *AUTOMATED EXPOSURE CONTROL *ADJUSTMENT OF MA AND/OR KV ACCORDING TO PATIENT SIZE (THIS INCLUDES TECHNIQUES OR STANDARDIZED PROTOCOLS FOR TARGETED EXAMS WHERE DOSE IS MATCHED TO INDICATION/REASON FOR EXAM; I.E. EXTREMITIES OR HEAD) *USE OF ITERATIVE RECONSTRUCTION TECHNIQUE DLP: 1529 MGY-CM INTERPRETATION OF FILMS: HEAD CT: There is extensive intraventricular hemorrhage involving the left lateral ventricle, third ventricle, and to a lesser extent fourth ventricle. The left lateral ventricle is casted with blood. The left lateral ventricle is dilated. There does not appear to be a substantial parenchymal component to the hemorrhage. There is mild microvascular ischemic change. There is no pathologic enhancement. There is no midline shift. There is developing hydrocephalus. The visualized paranasal sinuses are clear. There is a small inferior right mastoid air cell effusion. NECK CTA: The visualized aorta is normal in caliber. The origins of the common carotid and vertebral arteries are widely patent. The subclavian arteries are widely patent. Calcific atherosclerotic disease at the level of the right carotid bulb results in luminal irregularity and stenosis on the order of 56%. The cervical segment of the right internal carotid otherwise demonstrates smooth luminal margins and is normal in caliber. Mild calcific atherosclerotic disease at the level of the left carotid bulb results in luminal irregularity without significant stenosis. The cervical segment of the left internal carotid otherwise demonstrates smooth luminal margins and is normal in caliber. The right vertebral artery is patent and has a normal course through the cervical region. The left vertebral artery is patent and has a normal course through the cervical region. The left vertebral artery is dominant. HEAD CTA: The intracranial right internal carotid artery is normal in caliber. The right anterior and middle cerebral arteries are normal in appearance without significant stenosis or major branch vessel occlusion. The intracranial left internal carotid artery is normal in caliber. The left anterior and middle cerebral arteries are normal in appearance without significant stenosis or major branch vessel occlusion. The anterior communicating artery is unremarkable. The intradural vertebral arteries are widely patent and communicate normally with the basilar trunk. The posterior inferior cerebellar arteries are normal in appearance. The basilar artery and posterior cerebral artery vasculature is normal in appearance. No intracranial aneurysm. No evidence of high flow vascular malformation. OTHER: Lung apices are clear. There is a 1.3 cm nodule arising from the left lobe of the thyroid gland inferiorly. SUMMARY: CT HEAD: There is extensive intraventricular hemorrhage involving the left lateral ventricle, third ventricle, and to a lesser extent fourth ventricle. The left lateral ventricle is casted with blood. There is developing hydrocephalus. CTA NECK: Calcific atherosclerotic disease at the level of the right carotid bulb results in luminal irregularity and stenosis on the order of 56%. The cervical segment of the right internal carotid otherwise demonstrates smooth luminal margins and is normal in caliber. Mild calcific atherosclerotic disease at the level of the left carotid bulb results in luminal irregularity without significant stenosis. The cervical segment of the left internal carotid otherwise demonstrates smooth luminal margins and is normal in caliber. CTA HEAD: No intracranial large vessel occlusion. No intracranial aneurysm. No evidence of high flow vascular malformation. Catheter angiography is recommended for further evaluation. Electronically signed by: Leo Woodson DO 09/25/2024 04:41 PM EST
--- NOTE | 2024-09-25 14:45 | PC.NURSE ---
Pt. arrives with a 20G peripheral IV to [facility] per EMS
--- NOTE | 2024-09-25 14:45 | PC.NURSE ---
Pt. arrives to ED via [facility] as a stroke alert
--- NOTE | 2024-09-25 14:46 | PC.NURSE ---
Mauricio Singletary MD to bedside to assess pt. and to receive EMS report
[2024-09-25 14:50] VITALS: BP 156/83; PULSE 88; O2SAT 96
--- NOTE | 2024-09-25 14:50 | ECG_ITS ---
Test Reason : STROKE Blood Pressure : / mmHG Vent. Rate : 080 BPM Atrial Rate : 000 BPM P-R Int : 000 ms QRS Dur : 072 ms QT Int : 378 ms P-R-T Axes : 000 -13 086 degrees QTc Int : 435 ms Atrial fibrillation Nonspecific T wave abnormality Abnormal ECG When compared with ECG of 07-JUN-2024 08:58, Nonspecific T wave abnormality no longer evident in Inferior leads Nonspecific T wave abnormality, worse in Anterolateral leads Referred By: Baljinder Singletary Electronically Signed By:Audie Gutiérrez
--- NOTE | 2024-09-25 14:50 | PC.NURSE ---
Pt. in CT scanner at this time
--- NOTE | 2024-09-25 14:50 | ED.GENADULT ---
HPI - General Adult General Chief complaint: Stroke Stated complaint: ?STROKE,LKWT 09/24 @10PM,+ELIQUIS PER EMS Time Seen by Provider: 09/25/24 14:50 History of Present Illness ED Provider: Gemini EVANS narrative: The patient is an 78-year-old male who was on apixaban because of atrial fibrillation. He lives at home with his . His says that he was in his usual state of health when he went to bed last night. This morning his got up before him and several hours later checked on him because she was surprised that he had not woken up. She found him sitting on the side of the bed. He seemed confused and nonverbal. She called 911 and was brought to the hospital. The patient's thinks he probably did not take any apixaban this morning. She suspects that his last dose was yesterday evening. The patient is nonverbal and not able to give any additional history. Related Data Home Medications ?Medication ?Instructions ?Recorded ?Confirmed apixaban 5 mg tablet (Eliquis) 1 tab PO BID 11/13/21 11/13/21 atorvastatin 80 mg tablet 1 tab PO BEDTIME 11/13/21 11/13/21 cyanocobalamin (vitamin B-12) 1,000 mcg PO DAILY 11/13/21 11/13/21 1,000 mcg tablet doxazosin 8 mg tablet 1 tab PO DAILY 11/13/21 11/13/21 famotidine 20 mg tablet 1 tab PO BID 11/13/21 11/13/21 nitroglycerin 0.4 mg sublingual 0.4 mg sublingual Q2M PRN Chest 11/13/21 11/13/21 tablet Pain pyridoxine (vitamin B6) 100 mg 100 mg PO DAILY 11/13/21 11/13/21 tablet thiamine HCl (vitamin B1) 100 mg 50 mg PO DAILY 11/13/21 11/13/21 tablet Previous Rx's ?Medication ?Instructions ?Recorded cyclobenzaprine 5 mg tablet 5 mg PO TID PRN muscle spasm #10 09/02/23 tabs lidocaine 5 % topical patch 1 patch topical DAILY #15 ea 09/02/23 Allergies Allergy/AdvReac Type Severity Reaction Status Date / Time No Known Allergies Allergy Verified 06/07/24 09:18 [No Known Allergies*] Review of Systems Review of Systems: Yes Unobtainable due to mental status [facility] Past Medical History Medical History Heart attack A-fib A-fib Social History Social History Alcohol intake: current Alcohol intake frequency: 0-2 drinks per day Alcohol type: hard liquor Patient Tobacco Use Status: Former Tobacco user Advance Directives: Yes Advance Directives on File: Yes Advance Directives Date on File: 09/03/20 service: No Current occupational status: retired Physical Exam ED Vital Signs: Vital Signs - 24 hr 09/25/24 15:27 09/25/24 15:36 Temperature 98.8 F Pulse Rate 82 83 Respiratory Rate 15 17 Blood Pressure 145/83 H 148/84 H Pulse Oximetry 95 95 Oxygen Delivery Method Room Air Room Air Const Other: The patient is an 78-year-old man who seemed to be awake but was not very responsive. He seemed groggy. He did not seem in distress. HENMT Other: No obvious facial asymmetry. Eyes Other: The patient seems to have a left gaze preference but he is able to look to the right on command. There is no lateral No obvious gaze palsy. It was not clear if he was able to see things on the right. Neck Neck: Yes no JVD Resp Effort & Inspection: normal respiratory effort Auscultation: clear to auscultation bilaterally Cardio Other: The patient has an irregular rate and rhythm. GI Other: Abdomen is soft and nontender Skin Other: Skin is dry and unremarkable Neuro Other: The patient seems groggy but is arousable to verbal stimulation. He seems to have a left gaze preference. He is minimally verbal. He has some right arm pronator drift. Seems to have symmetrical strength in the legs. His NIH stroke scale is about 9. Extrem Other: No peripheral edema Medications Administered Discontinued Medications Generic Name Dose Route Start Last Admin Trade Name Freq PRN Reason Stop Dose Admin Prothrombin Complex Concent ( 80 mls @ 480 mls/hr 09/25/24 15:01 09/25/24 15:44 Human) 2,000 unit/ IV IV 09/25/24 15:02 Infused Miscellaneous Supplies .Q10M ONE Infusion Iohexol 70 ml 09/25/24 15:10 09/25/24 15:11 Iohexol 350 Mg/Ml 100 Ml Infus..Btl IV 09/25/24 15:11 70 ml ONCE ONE Administration Medical Decision Making Medical Decision Making [facility] Narrative: The patient is an 78-year-old male who arrived as a ?code stroke? after an ambulance has been called because of an altered mental status. The patient has a history of atrial fibrillation. He is on apixaban. According to his family he was in his normal state of health when he went to bed last night. This morning his woke up before he did and was surprised when he did not come downstairs in a timely fashion later in the morning. She went to check on him and found him confused in the bed and called 911. His neurological deficits are grogginess, decreased speech, right gaze preference, and slight right-sided weakness. NIH stroke scale is about 9. He was sent for a stat noncontrast head CT that showed a large intraventricular bleed with extension into the 3rd and 4th ventricles and some mild signs of early hydrocephalus. The patient's believes his last dose of apixaban was yesterday evening. The patient was given 2000 units of Kcentra to reverse his anticoagulation with apixaban. I discussed the case with Dr. Winston of the neuro critical care unit at [facility]. The patient has been accepted in transfer. Lab Data 09/25/24 15:25 09/25/24 15:25 Labs: Lab Results 09/25/24 09/25/24 Range/Units 15:25 15:27 WBC 9.6 (4.8-10.8) X10*3/uL RBC 4.59 L (4.60-5.80) X10*6/uL Hgb 12.3 L (14.0-18.0) g/dl Hct 37.1 L (42.0-52.0) % MCV 80.8 (80.0-98.0) fL MCH 26.8 L (27.0-33.0) pg MCHC 33.2 (31.0-36.0) g/dl RDW 15.9 (11.0-16.0) % Plt Count 270 (160-400) X10*3/uL MPV 9.9 (9.4-12.4) fL PT 16.3 H (10.9-12.4) SEC INR 1.4 H (0.9-1.1) APTT 32.9 (26.0-36.8) SEC POC Glucose 138 H (60-115) mg/dL Troponin I High Sens < 2.7 (<3.5-35.0) ng/L Independent Interpretation I performed an independent interpretation of an: EKG Interpretation: EKG at 1535 shows atrial fibrillation at 80 beats per minute. Critical Care Time Critical Care Time Total Critical Care Time: 35 Attestation: The patient was critically ill with a high probability of imminent or life-threatening deterioration. ?I spent greater than 30 minutes of discontinuous time evaluating the patient, delivering critical care at the bedside, discussing evaluating data with consultants. ?Critical care time does not include time spent performing separately billable procedures or teaching. ?Time spent performing critical care with 35 minutes. Discharge Plan Discharge Clinical Impression: Intracranial hemorrhage Patient Disposition: [facility] Transfer Details: [facility] Prescriptions: No Action atorvastatin 80 mg tablet 1 tab PO BEDTIME cyanocobalamin (vitamin B-12) 1,000 mcg Tablet 1,000 mcg PO DAILY thiamine HCl (vitamin B1) 100 mg Tablet 50 mg PO DAILY doxazosin 8 mg tablet 1 tab PO DAILY famotidine 20 mg tablet 1 tab PO BID nitroglycerin 0.4 mg tablet, sublingual 0.4 mg sublingual Q2M PRN (Reason: Chest Pain) pyridoxine (vitamin B6) 100 mg Tablet 100 mg PO DAILY Eliquis 5 mg tablet 1 tab PO BID cyclobenzaprine 5 mg tablet 5 mg PO TID PRN (Reason: muscle spasm) Qty: 10 0RF lidocaine 5 % adhesive patch,medicated 1 patch topical DAILY Qty: 15 0RF Rx Instructions: leave on most painful area for up to 12 hrs Print Language: Citizen Of [place]
--- NOTE | 2024-09-25 14:57 | PC.NURSE ---
Pt. remains in CT scan at this time
--- NOTE | 2024-09-25 14:58 | PC.NURSE ---
Large bleed noted on CT scan. CT alerted Mauricio Singletary MD to scanner to review
--- NOTE | 2024-09-25 14:59 | MHC.STROKE ---
Pt arrived as stroke alert. Pt follows commands but appears weak. Minimal verbal communication Dr. Singletary met EMS at door and examined patient. Pt directly to CT scan Dr. Singletary alerted by CT scan, large bleed noted on scan. Dr. Lamas in department and reviewed CT as well. Plan is for transfer for neurosurgery coverage. [facility]
--- NOTE | 2024-09-25 15:04 | PC.NURSE ---
Pt.'s EMS IV not working for CT scan. Additional access placed- 20G to RAC. Tolerated well. Good blood return and flushes without difficulty.
--- NOTE | 2024-09-25 15:08 | PC.NURSE ---
Called pharmacy- awaiting ordered KCentra at this time.
[2024-09-25] MEDS: iohexoL 350 MG/ML 100 ML INFUS..BTL 70 ML IV (15:11)
--- NOTE | 2024-09-25 15:19 | PC.NURSE ---
Pt. transferred from CT table to stretcher- HOB elevated to 30 degrees per verbal orders of Dr. Singletary.
--- NOTE | 2024-09-25 15:20 | PC.NURSE ---
Pt in ED room 20 at this time and on cardiac rehabilitation specialist as well.
--- NOTE | 2024-09-25 15:25 | PC.NURSE ---
Labs collected and sent as ordered.
[2024-09-25 15:27] VITALS: BP 145/83; PULSE 82; RESP 15; TEMP 37.1; O2SAT 95
[2024-09-25 15:32] LABS: Basophils Percent Auto 0.1 % (0-2); Hematocrit 37.1 % (42.0-52.0); Hemoglobin 12.3 g/dl (14.0-18.0); Imm Gran Abs Auto 0.03 X10*3/uL (0.00-0.03); Imm Gran Pct Auto 0.3 % (0.0-0.4); Lymphocytes Absolute Auto 0.2 X10*3/uL (1.2-4.9); Lymphocytes Percent Auto 2.4 % (20-40); MANUAL DIFF FLAG SCAN; Mean Corpuscular HGB Conc 33.2 g/dl (31.0-36.0); Mean Corpuscular Hemoglobin 26.8 pg (27.0-33.0); Mean Corpuscular Volume 80.8 fL (80.0-98.0); Mean Platelet Volume 9.9 fL (9.4-12.4); Monocytes Absolute Auto 0.3 X10*3/uL (0.1-1.2); Monocytes Percent Auto 2.7 % (2-11); Neutrophils Percent Auto 94.5 % (45-73); Platelet Count 270 X10*3/uL (160-400); Red Blood Count 4.59 X10*6/uL (4.60-5.80); Red Cell Distribution Width 15.9 % (11.0-16.0); SCAN SMEAR FLAG 1; White Blood Count 9.6 X10*3/uL (4.8-10.8)
[2024-09-25 15:32] LABS: Glucose, Whole Blood 138 mg/dL (60-115)
[2024-09-25] MEDS: Hum Prothrombin Cplx(PCC)4Fact 2,000 UNIT in Container,Empty 0 ML 480 UNIT IV (15:33)
--- NOTE | 2024-09-25 15:33 | PC.NURSE ---
Monica hand delivered by pharmacy at this time.
[2024-09-25 15:36] VITALS: BP 148/84; PULSE 83; RESP 17; O2SAT 95
[2024-09-25 15:38] LABS: INTERNATIONAL NORM RATIO 1.4 (0.9-1.1); Prothrombin Time 16.3 SEC (10.9-12.4)
--- NOTE | 2024-09-25 15:38 | PC.NURSE ---
HOB remains elevated to 30 degrees per MD.
[2024-09-25 15:40] LABS: Partial Thromboplastin Time 32.9 SEC (26.0-36.8)
[2024-09-25 15:44] LABS: Stroke Lab Use COMPLETE
[2024-09-25 15:55] LABS: Troponin-I High Sensitivity < 2.7 ng/L (<3.5-35.0)
[2024-09-25 16:05] LABS: Anion Gap 15 (12-20); Blood Urea Nitrogen 19 mg/dL (9-16); Carbon Dioxide 23 mmol/L (22-29); Chloride 106 mmol/L (96-108); Cholesterol 106 mg/dL (<200); Estimated Glomerular Filt Rate > 60; Glucose Random 146 mg/dL (60-115); HDL Cholesterol 39 mg/dL (>40); LDL Cholesterol Calculated 59 mg/dL (<100); Potassium 3.8 mmol/L (3.3-5.1); Sodium 140 mmol/L (135-145); Triglycerides 43 mg/dL (<150)
--- NOTE | 2024-09-25 16:08 | MHC.STROKE ---
Met with and [address] Singletary. Provider Explained CT results in detail. I was able to offer support and answer any other questions that they had. We discussed care plan, medications, and any recent injures ( denied any recent falls or any trauma) Will continue to assist as needed.
[2024-09-25 16:10] LABS: SLIDE REVIEW VERIFIED
--- NOTE | 2024-09-25 16:52 | PC.NURSE ---
RN-to-RN report called to [facility] at [facility]
[2024-09-25 17:01] LABS: Influenza A PCR NEGATIVE (Negative); Influenza B PCR NEGATIVE (Negative); Resp Syncy Virus RNA Qual PCR NEGATIVE (Negative); SARS COV2 PCR INHOUSE NEGATIVE (Negative)
[2024-09-25 17:20] VITALS: BP 148/84; PULSE 83; RESP 17; TEMP 37.1; O2SAT 95
[2024-09-27 12:26] LABS: ~PT, ~INR - Anti Coag Clinic 1.2 (0.9-1.1)
[2024-09-27 12:27] LABS: Prothrombin Time Whole Bld POC 14.9 sec (11.1-13.5)
== END 2024-09-25 17:21 | disposition short-term general hospital (02) ==
PROVIDERS: Emergency Provider Emergency Medicine; PCP Family Medicine
DX: I62.9 Nontraumatic intracranial hemorrhage, unspecified (principal); R29.709 NIHSS score 9; Z03.818 Encounter for observation for suspected exposure to other biological agents ruled out; I48.91 Unspecified atrial fibrillation; Z87.891 Personal history of nicotine dependence; Z79.01 Long term (current) use of anticoagulants; Z79.02 Long term (current) use of antithrombotics/antiplatelets; Z79.899 Other long term (current) drug therapy
CPT/HCPCS: 0241U; 36415; 70450; 70496; 70498; 80048; 80061; 82947; 84484; 85025; 85610; 85730; 93005; 96374; 99285; J7168; Q9967

== ENCOUNTER → 2024-09-25 14:50 | Outpatient (BNV) | payer MEDICARE, OTHER, SELFPAY | PROVIDERS: Emergency Provider Emergency Medicine; PCP Family Medicine; Visit Provider Internal Medicine Cardiovascular Disease | DX: I48.91 Unspecified atrial fibrillation (principal); I63.9 Cerebral infarction, unspecified; R94.31 Abnormal electrocardiogram [ECG] [EKG] | CPT/HCPCS: 93010 ==

== ENCOUNTER 2025-03-05 03:05 | Emergency (ER) | payer MEDICARE, OTHER, SELFPAY ==
[2025-03-05 03:08] VITALS: BP 122/74; PULSE 60; RESP 14; TEMP 36.6; O2SAT 97; BMI 22.8
--- NOTE | 2025-03-05 03:14 | ECG_ITS ---
Test Reason : CP Blood Pressure : */* mmHG Vent. Rate : 58 BPM Atrial Rate : 58 BPM P-R Int : 80 ms QRS Dur : 66 ms QT Int : 424 ms P-R-T Axes : 65 -22 24 degrees QTcB Int : 416 ms Atrial fibrillation Low voltage QRS Borderline ECG When compared with ECG of 25-Sep-2024 15:35, Nonspecific T wave abnormality no longer evident in Anterolateral leads Referred By: Generic ED Physician Electronically Signed By: MARY ALICE MARRERO MD
[2025-03-05 03:44] LABS: Basophils Percent Auto 0.6 % (0-2); Eosinophils Absolute Auto 0.2 X10*3/uL (0.0-0.4); Eosinophils Percent Auto 4.8 % (0-4); Hematocrit 37.8 % (42.0-52.0); Hemoglobin 12.3 g/dl (14.0-18.0); Imm Gran Abs Auto 0.02 X10*3/uL (0.00-0.03); Imm Gran Pct Auto 0.4 % (0.0-0.4); Lymphocytes Absolute Auto 0.4 X10*3/uL (1.2-4.9); Lymphocytes Percent Auto 8.1 % (20-40); MANUAL DIFF FLAG NO; Mean Corpuscular HGB Conc 32.5 g/dl (31.0-36.0); Mean Corpuscular Hemoglobin 27.4 pg (27.0-33.0); Mean Corpuscular Volume 84.2 fL (80.0-98.0); Mean Platelet Volume 11.2 fL (9.4-12.4); Monocytes Absolute Auto 0.6 X10*3/uL (0.1-1.2); Monocytes Percent Auto 11.7 % (2-11); Neutrophils Absolute Auto 3.7 x10*3/uL (2.0-8.3); Neutrophils Percent Auto 74.4 % (45-73); Platelet Count 189 X10*3/uL (160-400); Red Blood Count 4.49 X10*6/uL (4.60-5.80); Red Cell Distribution Width 14.1 % (11.0-16.0)
[2025-03-05 03:57] LABS: Alanine Aminotransferase 47 U/L (0-40); Albumin Level 3.9 g/dL (3.5-5.0); Alkaline Phosphatase 108 U/L (39-117); Anion Gap 13 (12-20); Aspartate Amino Transferase 46 U/L (5-37); Bilirubin Total 0.6 mg/dL (0.0-1.0); Blood Urea Nitrogen 21 mg/dL (9-16); Calcium 9.2 mg/dL (8.4-10.2); Carbon Dioxide 27 mmol/L (22-29); Chloride 105 mmol/L (96-108); Estimated Glomerular Filt Rate > 60; Glucose Random 94 mg/dL (60-115); Potassium 4.4 mmol/L (3.3-5.1); Sodium 141 mmol/L (135-145); Total Protein 7.3 g/dL (6.5-8.0)
[2025-03-05 04:04] LABS: Troponin-I High Sensitivity 7.4 ng/L (<3.5-35.0)
--- NOTE | 2025-03-05 05:52 | PC.NURSE ---
pt a&ox4, respirations even and unlabored. pt reports waking up and attempting sit up at the edge of his bed when he developed onset of right sided chest pain. pt reports some intermittent insomnia but denies taking any sleeping medications. pt repeat labs obtained at this time.
[2025-03-05 06:07] LABS: Troponin-I High Sensitivity 6.6 ng/L (<3.5-35.0)
--- NOTE | 2025-03-05 07:45 | PC.NURSE ---
Patient/son stating they have been waiting over 3 hours to be seen and they want to be seen now or they will be leaving. aware , who reviewed patients labs/ekg. MD stating because patient came in with chest pain he would like to see the patient but labs and ekg are wnl`s. patient/ son aware stating they do not want to wait any longer and will be leaving. aware
== END 2025-03-05 07:49 | disposition left against medical advice (07) ==
PROVIDERS: Emergency Provider Emergency Medicine Emergency Medical Services; PCP Family Medicine
DX: G47.00 Insomnia, unspecified (principal)
CPT/HCPCS: 36415; 80053; 84484; 85025; 93005; 99281; 99283; 99284

== ENCOUNTER → 2025-03-05 03:14 | Outpatient (BNV) | payer MEDICARE, OTHER, SELFPAY | PROVIDERS: Emergency Provider Emergency Medicine Emergency Medical Services; PCP Family Medicine; Visit Provider Internal Medicine Cardiovascular Disease | DX: R07.9 Chest pain, unspecified (principal); I48.91 Unspecified atrial fibrillation; R94.31 Abnormal electrocardiogram [ECG] [EKG] | CPT/HCPCS: 93010 ==